=== PATIENT | male | born 1990 | race Hispanic/Latino ===

== ENCOUNTER 2021-03-27 01:22 | Emergency (ER) | payer SELFPAY ==
[2021-03-27 02:56] LABS: Absolute Lymphocytes (CBC) 2.6 K/uL (0.7-4.9); Basophils % 0.6 % (0-1.3); Hematocrit 42.7 % (39.6-49.0); Lymphocytes % 29.2 % (15.3-44.8); MPV 11.4 fL (7.6-11.3); RBC Red Blood Cell Count 4.97 M/uL (4.33-5.43)
[2021-03-27] MEDS ORDERED: ASPIRIN 81 MG CHEWABLE TABLET ONE (02:56)
[2021-03-27 03:09] LABS: Protime INR 0.92
[2021-03-27 03:45] LABS: ALT/SGPT 54 U/L (12-78); Albumin 3.9 g/dL (3.4-5.0); Alkaline Phosphatase 86 U/L (45-117); BUN Blood Urea Nitrogen 10 mg/dL (7-18); Bicarbonate 21 mmol/L (21-32); Bilirubin Direct < 0.1 mg/dL (0-0.2); Bilirubin Total 0.4 mg/dL (0.2-1.0); Glucose Level 125 mg/dL (74-106); NT PRO-BNP 11 pg/mL (<125); Protein, Total 7.8 g/dL (6.4-8.2); Sodium Level 141 mmol/L (136-145); Troponin (Emerg Dept Use Only) < 0.02 ng/mL (0.0-0.045)
[2021-03-27 03:50] LABS: AST/SGOT 31 U/L (15-37); Potassium 3.8 mmol/L (3.5-5.1)
--- NOTE | 2021-03-27 05:11 | ER ---
Nurse's Notes [facility] Name: Kana Arroyo Age: 31 yrs Sex: Male : 1990 Arrival Date: 03/27/2021 Time: 01:28 Bed 16 Private MD: Diagnosis: Essential (primary) hypertension Presentation: 03/27 01:45 Chief complaint: Patient states: Reports have not been taking his BP meds x 2-3 weeks; lp1 states tonight, about an hour ago, "didn't feel right", states feeling like he could not think straight; felt anxious, like he could not breathe. 01:45 Coronavirus screen: Client denies travel out of the [place] in the last 14 days. At this lp1 time, the client does not indicate any symptoms associated with coronavirus-19. Ebola Screen: No symptoms or risks identified at this time. Initial Sepsis Screen: Does the patient meet any 2 criteria? No. Patient's initial sepsis screen is negative. Does the patient have a suspected source of infection? No. Patient's initial sepsis screen is negative. Risk Assessment: Do you want to hurt yourself or someone else? Patient reports no desire to harm self or others. Onset of symptoms was March 27, 2021. 01:45 Method Of Arrival: Ambulatory lp1 01:45 Acuity: AUTUMN 3 lp1 Historical: - Allergies: 02:29 No Known Allergies; lp1 - Home Meds: 02:29 Unable to obtain [Active]; lp1 - PMHx: 02:29 Hypertension; Hyperlipidemia; lp1 - PSHx: 02:29 None; lp1 - Immunization history:: Adult Immunizations up to date. - Social history:: Patient/guardian denies using alcohol, street drugs, The patient lives with family, Smoking status: Patient reports the use of cigarette tobacco products, denies chronic smoking, but will smoke occasionally. - Family history:: not pertinent. Screenin:30 Abuse screen: Denies threats or abuse. Denies injuries from another. Nutritional lp1 screening: No deficits noted. Tuberculosis screening: No symptoms or risk factors identified. Fall Risk None identified. Assessment: 02:00 General: Appears in no apparent distress. Behavior is anxious. Pain: Denies pain. lp1 Neuro: Level of Consciousness is awake, alert, obeys commands, Oriented to person, place, time, situation, Moves all extremities. Full function Pupils are PERRLA, Reports "can't think straight". Cardiovascular: Patient's skin is warm and dry. Rhythm is sinus rhythm. Respiratory: Reports shortness of breath Airway is patent Respiratory effort is even, unlabored, Respiratory pattern is regular, symmetrical, Breath sounds are clear bilaterally. the patient has mild shortness of breath. GI: No signs and/or symptoms were reported involving the gastrointestinal system. : No signs and/or symptoms were reported regarding the genitourinary system. EENT: No signs and/or symptoms were reported regarding the EENT system. Derm: Skin is pink, warm \\T\\ dry. Musculoskeletal: No deficits noted. 03:15 Reassessment: Patient appears in no apparent distress at this time. Patient and/or lp1 family updated on plan of care and expected duration. Pain level reassessed. Patient is alert, oriented x 3, equal unlabored respirations, skin warm/dry/pink. 04:38 Reassessment: Patient appears in no apparent distress at this time. Patient is alert, lp1 oriented x 3, equal unlabored respirations, skin warm/dry/pink. Patient states feeling better. 05:27 Reassessment: Patient is alert, oriented x 3, equal unlabored respirations, skin lp1 warm/dry/pink. Patient denies pain at this time. Patient states feeling better. Patient states symptoms have improved. Vital Signs: 01:45 BP 150 / 120 RA; Pulse 76; Resp 18; Temp 98.1(O); Pulse Ox 100% on R/A; Weight 93.44 kg lp1 (R); Height 5 ft. 10 in. (177.80 cm); Pain 0/10; 01:45 BP 160 / 120 LA; lp1 02:15 BP 153 / 92; Pulse 74; Resp 18; Pulse Ox 100% on R/A; lp1 03:00 BP 138 / 92; Pulse 78; Resp 16; Pulse Ox 100% on R/A; lp1 04:00 BP 160 / 88; Pulse 68; Resp 16; Pulse Ox 99% on R/A; lp1 05:00 BP 148 / 98; Pulse 72; Resp 16; Pulse Ox 100% on R/A; Pain 0/10; lp1 01:45 Body Mass Index 29.56 (93.44 kg, 177.80 cm) lp1 ED Course: 01:28 Patient arrived in ED. es 01:51 Jomar Mathias MD is Attending Physician. ma2 02:20 Missed attempt(s): 20 gauge in left antecubital area. lp1 02:20 Initial lab(s) drawn, by me, sent to lab. lp1 02:27 Rosa Arroyo, RN is Primary Nurse. lp1 02:29 Triage completed. lp1 02:29 Arm band placed on. lp1 02:30 Patient has correct armband on for positive identification. Bed in low position. Call lp1 light in reach. vehicle body builder on. Pulse ox on. NIBP on. 02:54 XRAY Chest (1 view) In Process Unspecified. EDMS 04:38 Repeat lab(s) drawn. by me, sent to lab. lp1 05:27 No provider procedures requiring assistance completed. Patient did not have IV access lp1 during this emergency room visit. Administered Medications: 02:55 Drug: Aspirin Chewable Tablet 243 mg Route: PO; lp1 04:00 Follow up: Response: No adverse reaction lp1 Outcome: 05:10 Discharge ordered by . ma2 05:27 Discharged to home ambulatory. lp1 05:27 Condition: good 05:27 Discharge instructions given to patient, Instructed on discharge instructions, follow up and referral plans. Demonstrated understanding of instructions, follow-up care. 05:28 Patient left the ED. lp1 Signatures: Dispatcher [employer] Mattie Condon Laura, RN RN lp1 Jomar Mathias MD MD ma2 Corrections: (The following items were deleted from the chart) 05:27 02:00 Cardiovascular: Patient's skin is warm and dry. lp1 lp1
--- NOTE | 2021-03-27 05:11 | EDPHYS ---
Physician Documentation [facility] Name: Kana Arroyo Age: 31 yrs Sex: Male : 1990 Arrival Date: 03/27/2021 Time: 01:28 Bed 16 Private MD: ED Physician Jomar Mathias HPI: 03/27 02:28 This 31 yrs old Male presents to ER via Unassigned with complaints of Tingling ma2 of fingers, feel like something is sitting on chest, Breathing Difficulty. 02:28 The patient has shortness of breath at rest. Associated signs and symptoms: Pertinent ma2 negatives: non-productive cough, dizziness, hemoptysis, loss of consciousness. Severity of symptoms: At their worst the symptoms were moderate in the emergency department the symptoms are unchanged. The patient has not experienced similar symptoms in the past. Historical: - Allergies: 02:29 No Known Allergies; lp1 - Home Meds: 02:29 Unable to obtain [Active]; lp1 - PMHx: 02:29 Hypertension; Hyperlipidemia; lp1 - PSHx: 02:29 None; lp1 - Immunization history:: Adult Immunizations up to date. - Social history:: Patient/guardian denies using alcohol, street drugs, The patient lives with family, Smoking status: Patient reports the use of cigarette tobacco products, denies chronic smoking, but will smoke occasionally. - Family history:: not pertinent. ROS: 02:28 Constitutional: Negative for fever, chills, and weight loss. ma2 02:28 All other systems are negative. Exam: 02:28 Constitutional: This is a well developed, well nourished patient who is awake, alert, ma2 and in no acute distress. Chest/axilla: Normal chest wall appearance and motion. Nontender with no deformity. No lesions are appreciated. Cardiovascular: Regular rate and rhythm with a normal S1 and S2. No gallops, murmurs, or rubs. Normal PMI, no JVD. No pulse deficits. Respiratory: Lungs have equal breath sounds bilaterally, clear to auscultation and percussion. No rales, rhonchi or wheezes noted. No increased work of breathing, no retractions or nasal flaring. Abdomen/GI: Soft, non-tender, with normal bowel sounds. No distension or tympany. No guarding or rebound. No evidence of tenderness throughout. Vital Signs: 01:45 BP 150 / 120 RA; Pulse 76; Resp 18; Temp 98.1(O); Pulse Ox 100% on R/A; Weight 93.44 kg lp1 (R); Height 5 ft. 10 in. (177.80 cm); Pain 0/10; 01:45 BP 160 / 120 LA; lp1 02:15 BP 153 / 92; Pulse 74; Resp 18; Pulse Ox 100% on R/A; lp1 03:00 BP 138 / 92; Pulse 78; Resp 16; Pulse Ox 100% on R/A; lp1 04:00 BP 160 / 88; Pulse 68; Resp 16; Pulse Ox 99% on R/A; lp1 05:00 BP 148 / 98; Pulse 72; Resp 16; Pulse Ox 100% on R/A; Pain 0/10; lp1 01:45 Body Mass Index 29.56 (93.44 kg, 177.80 cm) lp1 MDM: 01:51 Patient medically screened. [facility] 02:28 Differential diagnosis: Anxiety Reaction Bronchitis Unstable Angina. [facility] 05:09 Data reviewed: vital signs, nurses notes. Counseling: I had a detailed discussion with ma the patient and/or guardian regarding: the historical points, exam findings, and any diagnostic results supporting the discharge/admit diagnosis, the presence of at least one elevated blood pressure reading (>120/80) during this emergency department visit, the need for outpatient follow up. 03/27 02:27 Order name: Basic Metabolic Panel [facility] 03/27 02:27 Order name: CBC with Diff [facility] 03/27 02:27 Order name: LFT's; Complete Time: 04:10 [facility] 03/27 02:27 Order name: Magnesium; Complete Time: 04:10 [facility] 03/27 02:27 Order name: NT PRO-BNP; Complete Time: 04:10 [facility] 03/27 02:27 Order name: PT-INR; Complete Time: 04:10 [facility] 03/27 02:27 Order name: Troponin (emerg Dept Use Only); Complete Time: 04:10 [facility] 03/27 02:27 Order name: XRAY Chest (1 view) [facility] 03/27 02:27 Order name: EKG; Complete Time: 02:28 [facility] 03/27 02:27 Order name: Cardiac monitoring; Complete Time: 02:31 ma2 03/27 02:27 Order name: Basic Metabolic Panel; Complete Time: 04:10 [facility] 03/27 02:27 Order name: CBC with Automated Diff; Complete Time: 04:10 EDMS 03/27 04:10 Order name: Troponin I: repeat; Complete Time: 05:09 mn2 03/27 02:27 Order name: EKG - Nurse/Tech; Complete Time: 02:30 mn2 03/27 02:27 Order name: Labs collected and sent; Complete Time: 02:30 mn2 03/27 02:27 Order name: O2 Per Protocol; Complete Time: 02:30 ma2 03/27 02:27 Order name: O2 Sat Monitoring; Complete Time: 02:30 ma2 Administered Medications: 02:55 Drug: Aspirin Chewable Tablet 243 mg Route: PO; lp1 04:00 Follow up: Response: No adverse reaction lp1 Disposition: 03/27/21 05:10 Discharged to Home. Impression: Essential (primary) hypertension. - Condition is Stable. - Discharge Instructions: Hypertension. - Medication Reconciliation Form, Thank You Letter, Antibiotic Education, Prescription Opioid Use form. - Follow up: Private Physician; When: Tomorrow; Reason: Continuance of care. Signatures: Dispatcher [employer] Rosa Armstrong RN RN lp1 Jomar Mathias MD MD ma2 Corrections: (The following items were deleted from the chart) 05:28 05:10 03/27/2021 05:10 Discharged to Home. Impression: Essential (primary) lp1 hypertension. Condition is Stable. Forms are Medication Reconciliation Form, Thank You Letter, Antibiotic Education, Prescription Opioid Use. Follow up: Private Physician; When: Tomorrow; Reason: Continuance of care. ma2
[2021-03-27 05:36] VITALS: TEMP 98.1
[2021-03-27 05:42] VITALS: BP 148/98; O2SAT 100
--- NOTE | 2021-03-27 08:44 | RAD REPORT ---
EXAM DESCRIPTION: RAD - Chest Single View - 03/27/2021 2:54 am CLINICAL HISTORY: CHEST PAIN Chest pain. COMPARISON: Chest Pa And Lat (2 Views) dated 11/06/2016; CHEST SINGLE VIEW dated 03/31/2015 FINDINGS: Portable technique limits examination quality. The lungs are grossly clear. The heart is normal in size. No displaced fractures. IMPRESSION: No acute intrathoracic process suspected.
== END 2021-03-27 05:28 | disposition home or self-care (01) ==
LOC: ER 01:22
DX: I10 Essential (primary) hypertension (principal); F17.210 Nicotine dependence, cigarettes, uncomplicated
CPT/HCPCS: 36415; 71045; 80048; 80076; 83735; 83880; 84484; 85025; 85610; 93005; 99284

== ENCOUNTER 2021-08-15 03:32 | Emergency (ER) | payer SELFPAY ==
--- NOTE | 2021-08-15 04:05 | ER ---
Nurse's Notes [facility] Name: Kana Arroyo Age: 31 yrs Sex: Male : 1990 Arrival Date: 08/15/2021 Time: 03:36 Bed 13 Private MD: Diagnosis: Generalized anxiety disorder Presentation: 08/15 03:57 Chief complaint: Patient states: thinks BP is high, c/o left arm numbness, also reports em shortness of breath, has hx of anxiety. Coronavirus screen: Vaccine status: Patient reports being unvaccinated. Ebola Screen: Patient negative for fever greater than or equal to 101.5 degrees Fahrenheit, and additional compatible Ebola Virus Disease symptoms Patient denies exposure to infectious person. Patient denies travel to an Ebola-affected area in the 21 days before illness onset. No symptoms or risks identified at this time. Initial Sepsis Screen: Does the patient meet any 2 criteria? No. Patient's initial sepsis screen is negative. Does the patient have a suspected source of infection? No. Patient's initial sepsis screen is negative. Risk Assessment: Do you want to hurt yourself or someone else? Patient reports no desire to harm self or others. Onset of symptoms was August 15, 2021. 03:57 Method Of Arrival: Ambulatory em 03:57 Acuity: AUTUMN 3 em Historical: - Allergies: 03:59 No Known Allergies; em - Home Meds: 03:59 rosuvastatin 10 mg oral tab 1 tab once daily [Active]; irbesartan 150 mg oral tab em [Active]; - PMHx: 04:07 Hyperlipidemia; Hypertension; Anxiety; dc2 - PSHx: 03:59 None; em - Immunization history:: Adult Immunizations not immunized. - Social history:: Smoking status: Patient denies any tobacco usage or history of. Patient/guardian denies using alcohol, street drugs, The patient lives with family. - Family history:: not pertinent. Screenin:06 Abuse screen: Denies threats or abuse. Denies injuries from another. Nutritional dc2 screening: No deficits noted. Tuberculosis screening: No symptoms or risk factors identified. Never had TB. Possible symptoms: None. Fall Risk None identified. No fall in past 12 months (0 pts). No secondary diagnosis (0 pts). No IV (0 pts). Ambulatory Aid- None/Bed Rest/Nurse Assist (0 pts). Gait- Normal/Bed Rest/Wheelchair (0 pts) Mental Status- Oriented to own ability (0 pts). Total Bonilla Fall Scale indicates No Risk (0-24 pts). Assessment: 04:05 General: Appears in no apparent distress. comfortable, slender, well groomed, well dc2 developed, Behavior is cooperative, anxious, restless. Pain: Denies pain. Neuro: No deficits noted. Level of Consciousness is awake, alert, obeys commands, Oriented to person, place, time, situation. Cardiovascular: No deficits noted. Heart tones present. Respiratory: No deficits noted. Airway is patent Breath sounds are clear bilaterally. Denies shortness of breath. GI: No deficits noted. No signs and/or symptoms were reported involving the gastrointestinal system. Abdomen is non-distended. : No signs and/or symptoms were reported regarding the genitourinary system. Derm: No deficits noted. No signs and/or symptoms reported regarding the dermatologic system. Musculoskeletal: No deficits noted. No signs and/or symptoms reported regarding the musculoskeletal system. Vital Signs: 03:57 BP 139 / 97; Pulse 69; Resp 18; Temp 97.8; Pulse Ox 100% on R/A; Weight 90.72 kg; em Height 5 ft. 9 in. (175.26 cm); 03:57 Body Mass Index 29.53 (90.72 kg, 175.26 cm) em ED Course: 03:36 Patient arrived in ED. ja2 03:45 Jomar Mathias MD is Attending Physician. ma2 03:59 Triage completed. em 03:59 Arm band placed on. em 04:04 Millicent Delarosa, RN is Primary Nurse. dc2 04:05 Placed in gown. Bed in low position. Call light in reach. Side rails up X 1. Pulse ox dc2 on. NIBP on. 04:07 No provider procedures requiring assistance completed. dc2 04:09 Patient did not have IV access during this emergency room visit. dc2 Administered Medications: No medications were administered Outcome: 04:04 Discharge ordered by . ma2 04:14 Discharged to home ambulatory. dc2 04:14 Condition: stable 04:14 Discharge instructions given to patient, Instructed on discharge instructions, Prescriptions given X 1. 04:15 Patient left the ED. dc2 Signatures: Ron Evans, RN RN em Jomar Mathias MD MD ma2 Julianne Leon Millicent Delarosa RN RN dc2 Corrections: (The following items were deleted from the chart) 04: 03:59 PMHx: Hyperlipidemia; em dc2 04: 03:59 PMHx: Hypertension; em dc2
--- NOTE | 2021-08-15 04:05 | EDPHYS ---
Physician Documentation [facility] Name: Kana Arroyo Age: 31 yrs Sex: Male : 1990 Arrival Date: 08/15/2021 Time: 03:36 Bed 13 Private MD: ED Physician Jomar Mathias HPI: 08/15 04:03 This 31 yrs old Male presents to ER via Ambulatory with complaints of Numbness ma2 Of Arm, High Blood Pressure. 04:03 This 31 yrs old Male presents to ER via Ambulatory with complaints of anxiety. ma2 04:03 Onset: The symptoms/episode began/occurred gradually, 2 month(s) ago. Associated signs ma2 and symptoms: Pertinent negatives: erythema, nausea, pain, swelling, vomiting, warmth. Severity of symptoms: At their worst the symptoms were mild, in the emergency department the symptoms have improved. The patient has experienced similar episodes in the past. Historical: - Allergies: 03:59 No Known Allergies; em - Home Meds: 03:59 rosuvastatin 10 mg oral tab 1 tab once daily [Active]; irbesartan 150 mg oral tab em [Active]; - PMHx: 04:07 Hyperlipidemia; Hypertension; Anxiety; dc2 - PSHx: 03:59 None; em - Immunization history:: Adult Immunizations not immunized. - Social history:: Smoking status: Patient denies any tobacco usage or history of. Patient/guardian denies using alcohol, street drugs, The patient lives with family. - Family history:: not pertinent. ROS: 04:03 Constitutional: Negative for fever, chills, and weight loss. ma2 04:03 All other systems are negative. Exam: 04:03 Constitutional: This is a well developed, well nourished patient who is awake, alert, ma2 and in no acute distress. Head/Face: Normocephalic, atraumatic. Eyes: Pupils equal round and reactive to light, extra-ocular motions intact. Lids and lashes normal. Conjunctiva and sclera are non-icteric and not injected. Cornea within normal limits. Periorbital areas with no swelling, redness, or edema. ENT: Nares patent. No nasal discharge, no septal abnormalities noted. Tympanic membranes are normal and external auditory canals are clear. Oropharynx with no redness, swelling, or masses, exudates, or evidence of obstruction, uvula midline. Mucous membranes moist. Neck: Trachea midline, no thyromegaly or masses palpated, and no cervical lymphadenopathy. Supple, full range of motion without nuchal rigidity, or vertebral point tenderness. No Meningismus. Chest/axilla: Normal chest wall appearance and motion. Nontender with no deformity. No lesions are appreciated. Cardiovascular: Regular rate and rhythm with a normal S1 and S2. No gallops, murmurs, or rubs. Normal PMI, no JVD. No pulse deficits. Respiratory: Lungs have equal breath sounds bilaterally, clear to auscultation and percussion. No rales, rhonchi or wheezes noted. No increased work of breathing, no retractions or nasal flaring. Abdomen/GI: Soft, non-tender, with normal bowel sounds. No distension or tympany. No guarding or rebound. No evidence of tenderness throughout. Skin: Warm, dry with normal turgor. Normal color with no rashes, no lesions, and no evidence of cellulitis. MS/ Extremity: Pulses equal, no cyanosis. Neurovascular intact. Full, normal range of motion. Neuro: Awake and alert, GCS 15, oriented to person, place, time, and situation. Cranial nerves II-XII grossly intact. Motor strength 5/5 in all extremities. Sensory grossly intact. Cerebellar exam normal. Normal gait. 04:03 Psych: Awake, alert, with orientation to person, place and time. Behavior, mood, and ma2 affect are within normal limits. Vital Signs: 03:57 BP 139 / 97; Pulse 69; Resp 18; Temp 97.8; Pulse Ox 100% on R/A; Weight 90.72 kg; em Height 5 ft. 9 in. (175.26 cm); 03:57 Body Mass Index 29.53 (90.72 kg, 175.26 cm) em MDM: 03:46 Patient medically screened. ma2 04:03 Differential diagnosis: anxiety, essential htn, vs other conditions. ma2 04:04 Data reviewed: vital signs, nurses notes. Counseling: I had a detailed discussion with ma2 the patient and/or guardian regarding: the historical points, exam findings, and any diagnostic results supporting the discharge/admit diagnosis, the presence of at least one elevated blood pressure reading (>120/80) during this emergency department visit, the need for outpatient follow up. Response to treatment: the patient's symptoms have markedly improved after treatment. Administered Medications: No medications were administered Disposition Summary: 08/15/21 04:04 Discharge Ordered Location: Home ma2 Condition: Stable ma2 Diagnosis - Generalized anxiety disorder ma2 Followup: ma2 - With: Private Physician - When: Tomorrow - Reason: Continuance of care Discharge Instructions: - Discharge Summary Sheet ma2 - Generalized Anxiety Disorder, Adult ma2 Forms: - Medication Reconciliation Form ma2 - Thank You Letter ma2 - Antibiotic Education ma2 - Prescription Opioid Use ma2 Prescriptions: - buspirone 5 mg Oral tablet - take 1 tablet by ORAL route 3 times per day; 60 tablet; Refills: 0, Product ma2 Selection Permitted Signatures: Ron Evans RN RN Jomar Noyola MD MD al2 Isaura, VARINDER Ricks RN dc2 Corrections: (The following items were deleted from the chart) 04:07 03:59 PMHx: Hyperlipidemia; em dc2 04:07 03:59 PMHx: Hypertension; em dc2
[2021-08-15 04:23] VITALS: BP 139/97; TEMP 97.8; O2SAT 100
--- OUTSIDE RECORDS SUMMARY | 2021-08-26 07:36 | XMS REPORT | Continuity of Care Document ---
:1990 Author Organization [facility] t Address [address] [place] [address] [address] [place] [address] Care Team Providers Name Role Phone PCP, DOES NOT HAVE A Primary Care Physician Unavailable Felix REID Attending Clinician Unavailable Felix Reid DO Attending Clinician Payers Payer Name Policy Type Policy Number Effective Date Expiration Date S garima TERRYR FROM [id number] 2021 [facility] 00:00:00 Problems Condition Condition Condition Status Onset Resolution Last Treating Co mments Source Name Details Category Date Date Treatment Clinician Date No known No known Disease Unive rs active active ity of problems problems [facility] Allergies, Adverse Reactions, Alerts Allergy Allergy Status Severity Reaction(s) Onset Inactive Treating Comm ents Source Name Type Date Date Clinician NO KNOWN Drug Active Univers ALLERGIE Class ity of S [facility] Social History Social Habit Start Date Stop Date Quantity Comments Source Exposure to Not sure [facility] SARS-CoV-2 (event) Medica l Branch Sex Assigned At [birth year] [facility] 00:00:00 00:00:00 [facility] Smoking Status Start Date Stop Date Source Unknown if ever smoked [facility] Medications Ordered Filled Start Stop Current Ordering Indication Dosage Frequency Signature Comments Components Source Medication Medication Date Date Medication? Clinician (SIG) Name Name ketorolac 2020-10- No 30mg 30 mg, Unive rs (TORADOL) 10-21 Slow IV ity of injection 23:30: 22:39 [place], [place] 30 mg 00 :00 ONCE, 1 Medical dose, On Branch 08/21/21 at 1730, VIKKI
Fa culty member approving Restricted medication : KRISTINA REID NaCl 0.9% 2020-10 1000mL at 999 Uni vers (NS) bolus 10-21 mL/hr, ity of infusion 23:30: 23:38 1,000 mL, Socrates as 1,000 mL 00 :00 IV Medical Infusion, Branch ONCE, 1 dose, On 08/21/21 at 1730, VIKKI No known 2020-10 No Univers medications 10-21 ity of 15:59: [place] 17 [facility] Vital Signs Vital Name Observation Time Observation Value Comments Source Systolic blood 2021-08-21 23:36:00 131 mm[Hg] [facility] Diastolic blood 2021-08-21 23:36:00 92 mm[facility]Hg[facility] rate 2021-08-21 23:36:00 72 /min [facility] Respiratory rate 2021-08-21 23:36:00 11 /min [facility] Oxygen saturation in 2021-08-21 23:36:00 100 /min [facility] Arterial blood by [facility] Pulse oximetry [place] Body temperature 2021-08-21 21:24:00 36.33 Tenisha [facility] Body height 2021-08-21 21:24:00 175.3 cm [facility] Body weight 2021-08-21 21:24:00 95.255 kg [facility] BMI 2021-08-21 21:24:00 31.01 kg/m2 [facility] Procedures Procedure Date / Time Performing Clinician Source Performed XR CHEST 1 VW 2021-08-21 22:06:33 Kristina Reid [facility] LIPASE 2021-08-21 21:59:00 Kristina Reid [facility] TROPONIN I 2021-08-21 21:59:00 Kristina Reid [facility] COMP. METABOLIC PANEL 2021-08-21 21:59:00 Kristina Reid [facility] ([id number]) [facility] CBC WITH DIFF 2021-08-21 21:59:00 Kristina Reid [facility] PROTHROMBIN TIME / INR 2021-08-21 21:59:00 [facility] 2021-08-21 21:59:00 Kristina Reid [facility] Branch COVID-19 (ID NOW RAPID 2021-08-21 21:59:00 Kristina Reid [facility] TESTING) Medical Branch CONSENT/REFUSAL FOR 2021-08-21 21:13:11 [facility] Medical Branch Encounters Start End Encounter Admission Attending Care Care Encounter Source Date/Time Date/Time Type Type Clinicians Facility Department ID 2021-08-21 2021-08-21 Emergency X [facility] ERT [id number] Univers 15:27:00 17:48:00 KRISTINA [facility] 2021-08-21 2021-08-21 [facility] [id number] Univers 15:27:00 17:48:00 Kristina [place] [facility] [id number] [facility] [id number] [facility] [id number] [place] [id number] Branch Results Test Description Test Time Test Comments Results Result Comments Source TROPONIN I 2021-08-21 22:36:33 Test Item Value Reference Range Interpretation Comme nts TROPONIN I (test code = <0.012 See_Comment [Au tomated message] The [id number]) system which ge nerated this result tra nsmitted reference range : <=0.034 ng/mL. The refe rence range was not u sed to interpret this result as normal/abnormal . GRAYSON (test code = GRAYSON) Reference (Normal) Range (defined by the 99th percentile reference limit): <= 0.034 ng/mL Note: Cardiac troponin begins to rise 3-4 hours after the onset of ischemia. Repeat in 4-6 hours if the sample was drawn within 3-4 hours of the onset of the symptom and found normal. Diagnosis of myocardial injury is made with acute changes in cTn concentrations with at least one serial sample above the 99th percentile upper reference limit (URL), taken together with the patient's clinical presentation. Biotin has been reported to cause a negative bias, interpret results relative to patient's use of biotin. Lab Interpretation Normal (test code = 90222-6) [facility]. METABOLIC PANEL (42992)2021-08-21 22:24:50 Test Item Value Reference Range Interpretation Comments NA (test code = 137 mmol/L 135-145 4635379831) K (test code = 3.8 mmol/L 3.5-5.0 0629093040) CL (test code = 102 mmol/L 98-108 1431678650) CO2 TOTAL (test code = 24 mmol/L 23-31 7409952901) AGAP (test code = 2-16 8901710539) BUN (test code = 16 mg/dL 7-23 4184447188) GLUCOSE (test code = 177 mg/dL 70-110 H 4250712628) CREATININE (test code = 0.81 mg/dL 0.60-1.25 1559335217) TOTAL BILI (test code = 1.1 mg/dL 0.1-1.4 4973672893) CALCIUM (test code = 10.1 mg/dL 8.6-10.6 2107509417) T PROTEIN (test code = 8.0 g/dL 6.3-8.2 8409781980) ALBUMIN (test code = 4.8 g/dL 3.5-5.0 1328615678) ALK PHOS (test code = 100 U/L 34-122 2525414840) ALTv (test code = 38 U/L 5-50 1742-6) AST(SGOT) (test code = 28 U/L 13-40 4917530852) eGFR (test code = mL/min/1.73m2 2628596813) GRAYSON (test code = GRAYSON) Association of Glomerular Filtration Rate (GFR) and Staging of Kidney Disease* + --+ --+ ------+| GFR (mL/min/1.73 m2) ?| With Kidney Damage ?| ?Without Kidney Damage+ --------+ --------+ +| ?>90 ?| ?Stage one ?| ? Normal ?+ ---+ ---+ -------+| ?60-89 ?| ?Stage two ?| ? Decreased GFR ? + --+ --+ ------+| ?30-59 ?| ?Stage three ?| ? Stage three ? + --+ --+ ------+| ?15-29 ?| ?Stage four ? | ? Stage four ?+ ---+ ---+ -------+| ?<15 (or dialysis) ? ?| ?Stage five ? | ? Stage five ?+ ---+ ---+ -------+ *Each stage assumes the associated GFR level has been in effect for at least three months. ?Stages 1 to 5, with or without kidney disease, indicate chronic kidney disease. Notes: Determination of stages one and two (with eGFR >59mL/min/1.73 m2) requires estimation of kidney damage for at least three months as defined by structural or functional abnormalities of the kidney, manifested by either:Pathological abnormalities or Markers of kidney damage (including abnormalities in the composition of the blood or urine or abnormalities in imaging tests). Lab Interpretation Abnormal (test code = 14454-0) [facility] [id number] 22:24:30 Test Item Value Reference Range Interpretation Comments LIPASE (test code = 4453254401) 87 U/L 0-220 Lab Interpretation (test code = Normal 31885-0) [facility]21-[facility]08 22:17:09 Test Item Value Reference Range Interpretation Comments APTT Patient (test See_Comment [Automat ed code = 3173-2) message] The system which generated this result transmitted reference range : 23 - 38 Seconds . The reference range was not used to interpr et this result as normal/abnormal . GRAYSON (test code = GRAYSON) [facility] patient population mean normal value for aPTT is 30 seconds. Lab Interpretation Normal (test code = 03269-2) [facility] / [id number] 22:15:14 Test Item Value Reference Range Interpretation Comments PROTIME PATIENT (test See_Comment [Auto mated message] code = 5964-2) The system wh ich generated this result transmitted ref erence range: 12.0 - 1 4.7 Seconds. The re ference range was not u sed to interpret this result as normal/abnor mal. INR (test code = 6301-6) Nor mal INR <1.1; Warfarin Therap eutic range 2.0 to 3. 0 or 2.5 to 3.5, dep ending upon the indica tions. Lab Interpretation (test Normal code = 52204-9) [facility] WITH [id number] 22:07:28 Test Item Value Reference Range Interpretation Comments WBC (test code = See_Comment [Automated 6690-2) message] The sy stem which generated this result transmitted reference range : 4.20 - 10.70 10*3/?L. The reference range was not used to interpret this result as normal/abnormal . RBC (test code = See_Comment [Automated 789-8) message] The sy stem which generated this result transmitted reference range : 4.26 - 5.52 10*6/?L. The reference range was not used to interpret this result as normal/abnormal . HGB (test code = 15.1 g/dL 12.2-16.4 718-7) HCT (test code = 42.9 % 38.4-49.3 4544-3) MCV (test code = 83.5 fL 81.7-95.6 787-2) MCH (test code = 29.4 pg 26.1-32.7 785-6) MCHC (test code = 35.2 g/dL 31.2-35.0 H 786-4) RDW-SD (test code = 35.3 fL 38.5-51.6 L 75225-7) RDW-CV (test code = 11.7 % 12.1-15.4 L 788-0) PLT (test code = See_Comment [Automated 777-3) message] The sy stem which generated this result transmitted reference range : 150 - 328 10*3/ ?L. The reference r rickie was not used to interpret this result as normal/abnormal . MPV (test code = 12.4 fL 9.8-13.0 50179-7) NRBC/100 WBC (test See_Comment [Automat ed code = 7375646949) message] The system which generated this result transmitted reference range : 0.0 - 10.0 /100 WBCs. The refer ence range was not u sed to interpret th is result as normal/abnormal . NRBC x10^3 (test code <0.01 See_Comment [Auto mated = 6884200996) message] The s ystem which generated this result transmitted reference range : 10*3/?L. The reference range was not used to interpret this result as normal/abnormal . GRAN MAT (NEUT) % 69.4 % (test code = 770-8) IMM GRAN % (test code 0.20 % = 7047531106) LYMPH % (test code = 25.5 % 736-9) MONO % (test code = 3.5 % 5905-5) EOS % (test code = 1.1 % 713-8) BASO % (test code = 0.3 % 706-2) GRAN MAT x10^3(ANC) 6.12 10*3/uL 1.99-6.95 (test code = 6440178081) IMM GRAN x10^3 (test <0.03 0.00-0.06 code = 3520862554) LYMPH x10^3 (test code 2.25 10*3/uL 1.09-3.23 = 731-0) MONO x10^3 (test code 0.31 10*3/uL 0.36-1.02 L = 742-7) EOS x10^3 (test code = 0.10 10*3/uL 0.06-0.53 711-2) BASO x10^3 (test code 0.03 10*3/uL 0.01-0.09 = 704-7) Lab Interpretation Abnormal (test code = 43395-4) [facility]"
== END 2021-08-15 04:15 | disposition home or self-care (01) ==
LOC: ER 03:32
DX: F41.1 Generalized anxiety disorder (principal); I10 Essential (primary) hypertension; E78.5 Hyperlipidemia, unspecified
CPT/HCPCS: 99283

== ENCOUNTER 2022-02-25 19:15 | Emergency (ER) | payer OTHER ==
[2022-02-25] MEDS ORDERED: LORazepam 2 MG/ML VIAL ONE (19:51)
[2022-02-25] MEDS ORDERED: ONDANSETRON 4 MG/2 ML VIAL ONE (19:51)
[2022-02-25] MEDS ORDERED: NA CHLORIDE 0.9% 1,000 ML ONE (19:52)
--- NOTE | 2022-02-25 20:04 | RAD REPORT ---
EXAM DESCRIPTION: CT - Head Brain Wo Cont - 02/25/2022 7:51 pm CLINICAL HISTORY: Dizziness COMPARISON: 2013 TECHNIQUE: Computed axial tomography of the head was obtained. IV contrast was not requested. All CT scans are performed using dose optimization technique as appropriate and may include automated exposure control or mA/KV adjustment according to patient size. FINDINGS: An intracranial bleed is not seen . The ventricles are normal in caliber. No significant hypodense areas within the brain visualized No extra-axial fluid collection is noted. Fluid within the sinuses/ mastoids is not seen. IMPRESSION: No acute intracranial abnormality is seen. If patient's symptoms persist MRI of the bra in would be recommended.
--- NOTE | 2022-02-25 20:09 | RAD REPORT ---
EXAM DESCRIPTION: CT - Abdomen Pelvis Wo Contrast - 02/25/2022 7:56 pm CLINICAL HISTORY: Abdominal pain /flank pain COMPARISON: 2013 TECHNIQUE: Computed axial tomography of the abdomen and pelvis was obtained. IV and oral contrast we re not requested. All CT scans are performed using dose optimization technique as appropriate and may include automated exposure control or mA/KV adjustment according to patient size. FINDINGS: The evaluation of solid organs, vessels and bowel is limited secondary to the lack of con trast administration. The liver, spleen, pancreas, adrenals and kidneys appear grossly normal. The appendix is normal. There is no evidence of diverticulitis. Umbilical hernia contains fat. The neck measures 11 millimeters. The herniated sac 33 millimeters. Mi ld stranding is present within the fat IMPRESSION: Moderate umbilical hernia. Mild stranding within the fat may indicate inflammation
[2022-02-25 20:39] LABS: Absolute Lymphocytes (CBC) 3.3 K/uL (0.7-4.9); Hematocrit 48.5 % (39.6-49.0); Lymphocytes % 22.5 % (15.3-44.8); MPV 10.6 fL (7.6-11.3); RBC Red Blood Cell Count 5.92 M/uL (4.33-5.43)
[2022-02-25 20:48] LABS: Protime INR 1.04
[2022-02-25 21:01] LABS: Albumin 4.8 g/dL (3.4-5.0); Bilirubin Direct 0.2 mg/dL (0-0.2); Bilirubin Total 1.1 mg/dL (0.2-1.0); Magnesium 2.1 mg/dL (1.8-2.4); Potassium 3.7 mmol/L (3.5-5.1); Protein, Total 8.7 g/dL (6.4-8.2); Troponin High Sensitivity 4.4 pg/mL (<58.9)
--- NOTE | 2022-02-25 21:10 | RAD REPORT ---
EXAM DESCRIPTION: Luiz Single View02/25/2022 8:48 pm CLINICAL HISTORY: Abdominal pain COMPARISON: 2020 FINDINGS: The lungs appear clear of acute infiltrate. The heart is normal size IMPRESSION: No acute abnormalities displayed
[2022-02-25 22:16] LABS: Urine Blood Trace-intact (Negative); Urine Glucose Negative (Negative); Urine Protein Negative (Negative); Urine pH 6.5 (5.0-7.0)
[2022-02-25 22:39] LABS: Barbiturates NEGATIVE (NEGATIVE); Benzodiazepines NEGATIVE (NEGATIVE); Cocaine NEGATIVE (NEGATIVE); METHAMPHETAM NEGATIVE (NEGATIVE); Methadone NEGATIVE (NEGATIVE); Opiates NEGATIVE (NEGATIVE); Phencyclidine NEGATIVE (NEGATIVE); THC Cannibis POSITIVE (NEGATIVE)
--- NOTE | 2022-02-26 00:15 | EDPHYS ---
Physician Documentation [facility] Name: Kana Arroyo Age: 32 yrs Sex: Male : 1990 Arrival Date: 02/25/2022 Time: 19:18 Bed 6 Private MD: ED Physician Sanjeev Tesfaye HPI: 02/25 19:41 This 32 yrs old Male presents to ER via EMS with complaints of Dizziness. mh7 19:41 The patient presents with dizziness, lightheadedness, feeling off balance. Onset: The mh7 symptoms/episode began/occurred 1 week(s) ago. Context: occurred at home, occurred while the patient was standing, just prior to the episode the patient experienced no apparent symptoms. Modifying factors: The symptoms are alleviated by nothing, the symptoms are aggravated by standing up. Associated signs and symptoms: Pertinent positives: nausea, left lower back pain, congestion, Pertinent negatives: abdominal pain, agitation, blurred vision, chest pain, combativeness, confusion, diaphoresis, focal weakness, head injury, headache, near-syncope, numbness, palpitations, seizure, shortness of breath, syncope, tingling, vomiting. Severity of symptoms: At their worst the symptoms were moderate 4 day(s) ago, in the emergency department the symptoms are unchanged. The patient has been recently seen by a physician: outside ER 4 days ago. Historical: - Allergies: 19:19 No Known Allergies; jb4 - Home Meds: 19:19 BP PILL, UNKNOWN NAME [Active]; irbesartan 150 mg Oral tab [Active]; rosuvastatin 10 mg jb4 Oral tab 1 tab once daily [Active]; setraline [Active]; - PMHx: 19:19 Anxiety; Hyperlipidemia; Hypertension; jb4 - Immunization history:: Adult Immunizations unknown. - Social history:: Smoking status: unknown. ROS: 19:41 Constitutional: Negative for fever, chills, and weight loss, Eyes: Negative for injury, mh7 pain, redness, and discharge, Neck: Negative for injury, pain, and swelling, Cardiovascular: Negative for chest pain, palpitations, and edema, Respiratory: Negative for shortness of breath, cough, wheezing, and pleuritic chest pain, : Negative for injury, bleeding, discharge, and swelling, MS/Extremity: Negative for injury and deformity, Skin: Negative for injury, rash, and discoloration, Neuro: Negative for headache, weakness, numbness, tingling, and seizure. 19:41 Allergy/Immunology: Negative for hives, rash, and allergies, Endocrine: Negative for neck swelling, polydipsia, polyuria, polyphagia, and marked weight changes, Hematologic/Lymphatic: Negative for swollen nodes, abnormal bleeding, and unusual bruising. 19:41 Abdomen/GI: Negative for abdominal pain, vomiting, diarrhea, constipation, abdominal cramps, abdominal distension, anorexia, dysphagia, hematemesis, black/tarry stool, rectal pain, rectal bleeding, bowel incontinence, flatulence. 19:41 Psych: Positive for anxiety, Negative for depression, drug dependence, alcohol dependence, auditory hallucinations, visual hallucinations, homicidal ideation, insomnia, suicide gesture, suicidal ideation. Exam: 19:41 Eyes: Pupils equal round and reactive to light, extra-ocular motions intact. Lids and mh7 lashes normal. Conjunctiva and sclera are non-icteric and not injected. Cornea within normal limits. Periorbital areas with no swelling, redness, or edema. Neck: Trachea midline, no thyromegaly or masses palpated, and no cervical lymphadenopathy. Supple, full range of motion without nuchal rigidity, or vertebral point tenderness. No Meningismus. Chest/axilla: Normal chest wall appearance and motion. Nontender with no deformity. No lesions are appreciated. Cardiovascular: Regular rate and rhythm with a normal S1 and S2. No gallops, murmurs, or rubs. Normal PMI, no JVD. No pulse deficits. Respiratory: Lungs have equal breath sounds bilaterally, clear to auscultation and percussion. No rales, rhonchi or wheezes noted. No increased work of breathing, no retractions or nasal flaring. Skin: Warm, dry with normal turgor. Normal color with no rashes, no lesions, and no evidence of cellulitis. MS/ Extremity: Pulses equal, no cyanosis. Neurovascular intact. Full, normal range of motion. 19:41 Constitutional: The patient appears in no acute distress, alert, awake, anxious. 19:41 Psych: Behavior/mood is cooperative, anxious, Oriented to person, place, time, Patient has no thoughts/intents to harm self or others. Judgement / Insight is normal. Memory is normal. Delusions/hallucinations are not present. 19:41 Head/Face: Normocephalic, atraumatic. Abdomen/GI: Soft, non-tender, with normal bowel 7 sounds. No distension or tympany. No guarding or rebound. No evidence of tenderness throughout. 19:41 Back: normal spinal alignment noted, CVA tenderness, that is moderate, is noted on the mh7 left, muscle spasm, is not present. Vital Signs: 19:19 BP 156 / 115; Pulse 86; Resp 17 S; Temp 98.0(O); Pulse Ox 100% on R/A; Weight 92.99 kg jl7 (R); Height 5 ft. 9 in. (175.26 cm) (R); Pain 6/10; 20:07 BP 153 / 102 Supine; ll3 20:12 BP 151 / 106 Sitting; ll3 20:17 BP 146 / 110 Standing; ll3 20:58 BP 154 / 113; Pulse 83; Resp 19; Pulse Ox 99% on R/A; lg3 22:20 BP 143 / 110; Pulse 76; Resp 21 S; Pulse Ox 99% on R/A; lg3 23:30 BP 128 / 90; Pulse 74; Resp 18; Pulse Ox 99% on R/A; ll3 0516 00:30 BP 142 / 106; Pulse 77; Resp 20; Pulse Ox 98% on R/A; ll3 05 19:19 Body Mass Index 30.27 (92.99 kg, 175.26 cm) [facility] MDM: 00:13 Differential diagnosis: cardiac arrhythmia, generalized weakness, idiopathic dizziness, mh7 near-syncope, syncope, vertigo. Data reviewed: vital signs, nurses notes, lab test result(s), cardiac enzymes, CBC, electrolytes, urinalysis, urine drug screen, EKG, radiologic studies, CT scan, plain films. Data interpreted: Pulse oximetry: on room air is 99 %. Interpretation: normal. Counseling: I had a detailed discussion with the patient and/or guardian regarding: the historical points, exam findings, and any diagnostic results supporting the discharge/admit diagnosis, the presence of at least one elevated blood pressure reading (>120/80) during this emergency department visit, lab results, radiology results, the need for outpatient follow up, to return to the emergency department if symptoms worsen or persist or if there are any questions or concerns that arise at home. Response to treatment: the patient's symptoms have resolved after treatment, the patient's blood pressure is in an acceptable range, mental status has returned to baseline, the patient no longer shows bradycardia, the patient is not short of breath, the patient is not tachycardic, the patient's pain is gone, the patient's temperature has normalized. 00:15 Patient medically screened. [facility] 02/25 19:35 Order name: Basic Metabolic Panel; Complete Time: 21:11 [facility] 02/25 19:35 Order name: CBC with Diff; Complete Time: 20:55 [facility] 02/25 19:35 Order name: LFT's; Complete Time: 21:11 [facility] 02/25 19:35 Order name: Magnesium; Complete Time: 21:11 [facility] 02/25 19:35 Order name: NT PRO-BNP; Complete Time: 21:11 [facility] 02/25 19:35 Order name: PT-INR; Complete Time: 20:55 [facility] 02/25 19:35 Order name: Troponin HS; Complete Time: 21:11 [facility] 02/25 19:35 Order name: UDS; Complete Time: 23:13 [facility] 02/25 19:40 Order name: Rapid Strep; Complete Time: 21:11 [facility] 02/25 20:22 Order name: Lipase; Complete Time: 21:13 [facility] 02/25 20:44 Order name: SARS-COV-2 RT PCR; Complete Time: 21:46 [facility] 02/25 20:58 Order name: Throat Culture [facility] 02/25 22:16 Order name: Urine Dipstick-Ancillary; Complete Time: 23:13 [facility] 02/25 19:35 Order name: XRAY Chest (1 view); Complete Time: 21:11 [facility] 02/25 19:35 Order name: EKG; Complete Time: 19:36 [facility] 02/25 19:35 Order name: Cardiac monitoring; Complete Time: 19:41 [facility] 02/25 19:35 Order name: EKG - Nurse/Tech; Complete Time: 19:41 [facility] 02/25 19:35 Order name: IV Saline Lock; Complete Time: 20:33 [facility] 02/25 19:35 Order name: Labs collected and sent; Complete Time: 20:33 [facility] 02/25 19:35 Order name: O2 Per Protocol; Complete Time: 19:41 [facility] 02/25 19:35 Order name: O2 Sat Monitoring; Complete Time: 19:41 [facility] 02/25 19:35 Order name: Urine Dipstick-Ancillary (obtain specimen); Complete Time: 22:20 [facility] 02/25 19:38 Order name: CT Head Brain wo Cont; Complete Time: 21:46 [facility] 02/25 19:38 Order name: CT Abd/Pelvis - Without Contrast; Complete Time: 20:55 [facility] 02/25 23:17 Order name: Urine Microscopic Only; Complete Time: 00:52 [facility] 02/25 19:36 Order name: Orthostatics; Complete Time: 20:33 [facility] Administered Medications: 02/25 20:30 Drug: NS 0.9% 1000 ml Route: IV; Rate: 1000 ml; Site: right antecubital; 3 02/26 00:35 Follow up: Response: No adverse reaction; IV Status: Completed infusion; IV Intake: ll3 1000ml 02/25 20:30 Drug: Zofran (Ondansetron) 4 mg Route: IVP; Site: right antecubital; [facility] 02/26 00:35 Follow up: Response: No adverse reaction [facility] 02/25 20:34 Drug: Ativan (LORazepam) 1 mg Route: IVP; Site: right antecubital; 3 02/26 00:35 Follow up: Response: No adverse reaction [facility] 00:34 Drug: Rocephin (cefTRIAXone) 1 grams Route: IV; Rate: per protocol; Site: right 3 antecubital; Disposition Summary: 02/26/22 00:15 Discharge Ordered Location: Home [facility] Problem: new [facility] Symptoms: have improved [facility] Condition: Stable [facility] Diagnosis - Dizziness and giddiness [facility] - Essential (primary) hypertension 7 - Cannabis abuse 7 - Flank Pain [facility] Followup: [facility] - With: Private Physician - When: 1 - 2 days - Reason: Worsening of condition, Recheck today's complaints, Continuance of care, Re-evaluation by your physician Discharge Instructions: - Discharge Summary Sheet [facility] - Cannabis Use Disorder mh7 - Hypertension, Adult, Izky-hs-Btcv 7 - Dizziness, Zawk-so-Bkpo mh7 - Flank Pain, Adult, Jjqb-mo-Chcw [facility] Forms: - Medication Reconciliation Form [facility] - Thank You Letter mh7 - Antibiotic Education 7 - Prescription Opioid Use [facility] Prescriptions: - Cipro 500 mg Oral Tablet - take 1 tablet by ORAL route every 12 hours for 10 days; 20 tablet; Refills: 0, mh7 Product Selection Permitted Signatures: Dispatcher [employer] Lex Kevin, RN RN jb4 Sanjeev Tesfaye MD MD mh7 Ileana Shankar RN RN ll3 Corrections: (The following items were deleted from the chart) 02/25 19:20 19:19 Immunization history: Adult Immunizations mary jb4 20:44 19:41 COVID-19/FLU A+B+MOL.LAB.BRZ ordered. EDMS EDMS
--- NOTE | 2022-02-26 00:15 | ER ---
Nurse's Notes [facility] Name: Kana Arroyo Age: 32 yrs Sex: Male : 1990 Arrival Date: 02/25/2022 Time: 19:18 Bed 6 Private MD: Diagnosis: Dizziness and giddiness;Essential (primary) hypertension;Cannabis abuse;Flank Pain Presentation: 02/25 19:18 Chief complaint: EMS states: Pt was seen on Saturday at [facility] for generalized weakness. jb4 They gave him amoxicillin. Pt is reporting left side pain. Coronavirus screen: At this time, the client does not indicate any symptoms associated with coronavirus-19. Ebola Screen: No symptoms or risks identified at this time. Initial Sepsis Screen: Does the patient meet any 2 criteria? No. Patient's initial sepsis screen is negative. Does the patient have a suspected source of infection? No. Patient's initial sepsis screen is negative. Risk Assessment: Do you want to hurt yourself or someone else? Patient reports no desire to harm self or others. Onset of symptoms was February 25, 2022. Transition of care: patient was not received from another setting of care. 19:18 Method Of Arrival: EMS: [facility] jb4 19:18 Acuity: AUTUMN 3 jb4 Historical: - Allergies: 19:19 No Known Allergies; jb4 - Home Meds: 19:19 BP PILL, UNKNOWN NAME [Active]; irbesartan 150 mg Oral tab [Active]; rosuvastatin 10 mg jb4 Oral tab 1 tab once daily [Active]; setraline [Active]; - PMHx: 19:19 Anxiety; Hyperlipidemia; Hypertension; jb4 - Immunization history:: Adult Immunizations unknown. - Social history:: Smoking status: unknown. Screenin:37 Abuse screen: Denies threats or abuse. Nutritional screening: No deficits noted. ll3 Tuberculosis screening: No symptoms or risk factors identified. Fall Risk No fall in past 12 months (0 pts). No secondary diagnosis (0 pts). IV access (20 points). Ambulatory Aid- None/Bed Rest/Nurse Assist (0 pts). Gait- Normal/Bed Rest/Wheelchair (0 pts) Mental Status- Oriented to own ability (0 pts). Total Bonilla Fall Scale indicates No Risk (0-24 pts). Assessment: 20:37 General: Appears uncomfortable, Behavior is calm, cooperative. Pain: Complains of pain ll3 in chest Quality of pain is described as Tightness. Neuro: Level of Consciousness is awake, alert, obeys commands, Oriented to person, place, time, situation. Neuro: Reports Anxiety. Derm: Skin is pink, warm \T\ dry. 22:19 Reassessment: Patient appears in no apparent distress at this time. No changes from lg3 previously documented assessment. Patient and/or family updated on plan of care and expected duration. Pain level reassessed. Patient is alert, oriented x 3, equal unlabored respirations, skin warm/dry/pink. 23:30 Reassessment: Patient appears in no apparent distress at this time. Patient and/or ll3 family updated on plan of care and expected duration. Pain level reassessed. Patient is alert, oriented x 3, equal unlabored respirations, skin warm/dry/pink. Patient states feeling better. 02/26 00:51 Reassessment: No changes from previously documented assessment. Patient and/or family ll3 updated on plan of care and expected duration. Pain level reassessed. Patient is alert, oriented x 3, equal unlabored respirations, skin warm/dry/pink. Vital Signs: 02/25 19:19 BP 156 / 115; Pulse 86; Resp 17 S; Temp 98.0(O); Pulse Ox 100% on R/A; Weight 92.99 kg [facility] (R); Height 5 ft. 9 in. (175.26 cm) (R); Pain 6/10; 20:07 BP 153 / 102 Supine; ll3 20:12 BP 151 / 106 Sitting; ll3 20:17 BP 146 / 110 Standing; ll3 20:58 BP 154 / 113; Pulse 83; Resp 19; Pulse Ox 99% on R/A; lg3 22:20 BP 143 / 110; Pulse 76; Resp 21 S; Pulse Ox 99% on R/A; lg3 23:30 BP 128 / 90; Pulse 74; Resp 18; Pulse Ox 99% on R/A; ll3 02/26 00:30 BP 142 / 106; Pulse 77; Resp 20; Pulse Ox 98% on R/A; ll3 02/25 19:19 Body Mass Index 30.27 (92.99 kg, 175.26 cm) [facility] ED Course: 02/25 19:18 Patient arrived in ED. jb4 19:19 Triage completed. jb4 19:19 Sanjeev Tesfaye MD is Attending Physician. mh7 19:19 Arm band placed on right wrist. jb4 19:52 CT Head Brain wo Cont In Process Unspecified. EDMS 19:56 Rebecca Denise, RN is Primary Nurse. lg3 19:58 CT Abd/Pelvis - Without Contrast In Process Unspecified. EDMS 20:32 Inserted saline lock: 20 gauge in right antecubital area, using aseptic technique. wm 20:32 Initial lab(s) drawn, by me, sent to lab. wm 20:33 Rapid Strep Sent. wm 20:37 Patient has correct armband on for positive identification. Placed in gown. Bed in low ll3 position. Call light in reach. Side rails up X 1. corn crop supervisor on. Pulse ox on. NIBP on. 20:50 XRAY Chest (1 view) In Process Unspecified. EDMS 22:20 Urine collected: clean catch specimen, cloudy. 05/ 00:52 No provider procedures requiring assistance completed. ll3 00:56 IV discontinued, intact, bleeding controlled, No redness/swelling at site. Pressure ll3 dressing applied. Administered Medications: 02/25 20:30 Drug: NS 0.9% 1000 ml Route: IV; Rate: 1000 ml; Site: right antecubital; ll3 16 00:35 Follow up: Response: No adverse reaction; IV Status: Completed infusion; IV Intake: ll3 1000ml 02/25 20:30 Drug: Zofran (Ondansetron) 4 mg Route: IVP; Site: right antecubital; ll3 02/26 00:35 Follow up: Response: No adverse reaction ll3 02/25 20:34 Drug: Ativan (LORazepam) 1 mg Route: IVP; Site: right antecubital; ll3 02/26 00:35 Follow up: Response: No adverse reaction ll3 00:34 Drug: Rocephin (cefTRIAXone) 1 grams Route: IV; Rate: per protocol; Site: right ll3 antecubital; Medication: 02/25 20:37 VIS not applicable for this client. ll3 Intake: 02/26 00:35 IV: 1000ml; Total: 1000ml. ll3 Outcome: 00:15 Discharge ordered by . [email or web address] 00:56 Discharged to home ambulatory. ll3 00:56 Condition: stable 00:56 Discharge instructions given to patient, Instructed on discharge instructions, follow up and referral plans. medication usage, Demonstrated understanding of instructions, follow-up care, medications, Prescriptions given X 1. 00:57 Patient left the ED. ll3 Signatures: Dispatcher [employer] EDLex Vazquez, RN RN jb4 Vesta Alarcon RN RN jl7 Rebecca Denise RN RN lg3 Sanjeev Tesfaye MD MD mh7 Aruna Sanz Ileana Shankar RN RN ll3 Corrections: (The following items were deleted from the chart) 02/25 19:20 19:19 Immunization history: Adult Immunizations mary jb4 20:44 20:33 COVID-19/FLU A+B+MOL.LAB.BRMitchell drawn and sent. EDND
[2022-02-26] MEDS ORDERED: CEFTRIAXONE 1000 MG/VIAL ONE (00:30)
[2022-02-26] MEDS ORDERED: NA CHLORIDE 0.9% 50 ML ONE (00:30)
[2022-02-26 00:51] LABS: Urine Bacteria <20 /HPF (NONE SEEN); Urine RBC <5 /HPF (NONE SEEN)
[2022-02-26 01:16] VITALS: BP 142/106; O2SAT 98
[2022-02-26 01:21] VITALS: TEMP 98
--- NOTE | 2022-02-26 10:04 | EKG ---
Test Date: 2022-02-25 Test Time: 19:20:10 Leadership Coach: JESSE MEASUREMENT RESULTS: Intervals: Rate: 81 TN: 164 QRSD: 90 QT: 360 QTc: 418 [place]: P: 46 TN: 164 QRS: 20 T: 62 INTERPRETIVE STATEMENTS: Normal sinus rhythm Normal ECG Compared to ECG 03/27/2021 02:12:05 Sinus arrhythmia no longer present Electronically Signed On 02-26-22 10:02:34 CDT by Panchito Corbin
== END 2022-02-26 00:57 | disposition home or self-care (01) ==
LOC: ER 19:15
DX: R42 Dizziness and giddiness (principal); F12.10 Cannabis abuse, uncomplicated; I10 Essential (primary) hypertension; R10.9 Unspecified abdominal pain; F41.9 Anxiety disorder, unspecified; E78.5 Hyperlipidemia, unspecified; Z20.822 Contact with and (suspected) exposure to COVID-19
CPT/HCPCS: 96361; 93005; 87070; 85025; 80048; 36415; 83735; 85610; 80076; 87081; 84484; 83690; 83880; 80307; 70450; 74176; 71045; 96375; 96374; 99285; U0003; J7030; J2405; 81003; 81015

== ENCOUNTER 2024-04-04 22:35 | Emergency (ER) | payer OTHER, SELFPAY ==
[2024-04-05] MEDS ORDERED: MECLIZINE HCL 12.5 MG TAB ONE (00:52)
[2024-04-05] MEDS ORDERED: NA CHLORIDE 0.9% 1,000 ML ONE (00:52)
[2024-04-05 01:35] LABS: Absolute Eosinophils 0.2 K/uL (0-0.5); Absolute Lymphocytes (CBC) 3.9 K/uL (0.7-4.9); Absolute Monocytes 0.8 K/uL (0.1-1.3); Absolute Neutrophil 6.1 K/uL (1.8-8.0); Basophils % 0.4 % (0-1.3); Eosinophils % 1.4 % (0-4.4); Hematocrit 44.1 % (39.6-49.0); Hemoglobin 15.3 g/dL (13.6-17.9); Lymphocytes % 35.5 % (15.3-44.8); MCH 29.9 pg (27.0-35.0); MCHC 34.6 g/dL (32.0-36.0); MCV 86.5 fL (80-100); MPV 11.2 fL (7.6-11.3); Neutrophils % 55.7 % (41.7-73.7); Nucleated Red Blood Cells % 0.2 % (0-0); Platelets 166 thou/uL (152-406); Red Cell Distribution Width 12.9 % (12.1-15.2)
[2024-04-05 02:05] LABS: ALT/SGPT 87 U/L (16-61); Albumin/Globulin Ratio 1.1 (1.1-1.8); Alkaline Phosphatase 91 U/L (45-117); Anion Gap 7.9 mEq/L (5.0-15.0); BUN Blood Urea Nitrogen 15 mg/dL (7-18); Bicarbonate 28 mEq/L (21-32); Bilirubin Total 0.5 mg/dL (0.2-1.0); Globulin 3.7 g/dL (2.3-3.5); Glomerular Filtration Rate 119 ml/min (=/>90); Glucose Level 110 mg/dL (74-106); Protein, Total 7.7 g/dL (6.4-8.2); Sodium Level 139 mEq/L (136-145); Troponin High Sensitivity 3.6 pg/mL (<58.9)
[2024-04-05 02:06] LABS: AST/SGOT 30 U/L (15-37); Bilirubin Direct < 0.2 mg/dL (0-0.2); Bilirubin Indirect, Calculated 0.3 mg/dL (0.2-0.8); Magnesium 2.2 mg/dL (1.6-2.4); Potassium 3.9 mEq/L (3.5-5.1)
[2024-04-05 02:06] LABS: Barbiturates NEGATIVE (NEGATIVE); Benzodiazepines NEGATIVE (NEGATIVE); Cocaine NEGATIVE (NEGATIVE); METHAMPHETAM NEGATIVE (NEGATIVE); Methadone NEGATIVE (NEGATIVE); Opiates NEGATIVE (NEGATIVE); Phencyclidine NEGATIVE (NEGATIVE); THC Cannibis NEGATIVE (NEGATIVE)
--- NOTE | 2024-04-05 03:23 | EDPHYS ---
Physician Documentation [facility] Name: Kana Arroyo Age: 34 yrs Sex: Male : 1990 Arrival Date: 04/04/2024 Time: 22:35 Bed 17 Private MD: ED Physician HPI: 04/05 00:15 This 34 yrs old Male presents to ER via Unassigned with complaints of cp Dizziness. 00:15 Reports head feels like in a "fog". cp 00:15 The patient presents with dizziness, lightheadedness. Onset: The symptoms/episode cp began/occurred 2 week(s) ago. Associated signs and symptoms: Pertinent positives: fatigue. 00:15 Patient's baseline: Neuro: alert and fully oriented, Motor: no deficits, Ambulation: cp walks without assistance, Speech: normal. Historical: - Allergies: 04/04 23:00 No Known Allergies; jw7 - PMHx: 23:00 Anxiety; Hyperlipidemia; Hypertension; Major depressive disorder; Umbilical hernia; jw7 - PSHx: 23:00 Tonsillectomy; rhinoplasty; jw7 - Immunization history:: Adult Immunizations up to date, Client reports having NOT received the Covid vaccine. Flu vaccine is not up to date. - Infectious Disease History:: Denies. - Social history:: Smoking status: Patient/guardian denies using tobacco, Stopped _ months ago 2 Patient uses alcohol, but reports only rare drinking. Patient/guardian denies using street drugs, IV drugs. ROS: 04/05 00:20 Constitutional: Positive for fatigue, weight loss, Negative for body aches, chills, cp fever, poor PO intake, 00:20 Eyes: Negative for injury, pain, redness, and discharge, cp 00:20 ENT: Negative for drainage from ear(s), ear pain, sore throat, difficulty swallowing, difficulty handling secretions, 00:20 Cardiovascular: Negative for chest pain, edema, palpitations, 00:20 Respiratory: Negative for cough, shortness of breath, wheezing, 00:20 Abdomen/GI: Negative for abdominal pain, vomiting, diarrhea, constipation, 00:20 Neuro: Positive for dizziness, 00:20 All other systems are negative, Exam: 00:25 Constitutional: The patient appears in no acute distress, alert, awake, cp non-diaphoretic, non-toxic, well developed, well nourished, 00:25 Head/Face: Normocephalic, atraumatic. cp 00:25 Eyes: Periorbital structures: appear normal, Pupils: equal, round, and reactive to light and accomodation, Extraocular movements: intact throughout, Conjunctiva: normal, no exudate, no injection, Sclera: no appreciated abnormality, Lids and lashes: appear normal, bilaterally, 00:25 ENT: External ear(s): are unremarkable, Nose: is normal, Mouth: Lips: moist, Oral mucosa: pink and intact, moist, Posterior pharynx: Airway: no evidence of obstruction, patent, 00:25 Chest/axilla: Inspection: normal, Palpation: is normal, no crepitus, no tenderness, 00:25 Respiratory: the patient does not display signs of respiratory distress, Respirations: normal, no use of accessory muscles, no retractions, labored breathing, is not present, Breath sounds: are clear throughout, no decreased breath sounds, no stridor, no wheezing, 00:25 Abdomen/GI: Exam negative for discomfort, distension, guarding, Inspection: abdomen appears normal, 00:25 Neuro: Orientation: to person, place \\T\\ time. Mentation: is normal, Motor: moves all fours, strength is normal, Sensation: is normal, Gait: is steady, at a normal pace, without difficulty, Vital Signs: 04/04 23:00 BP 157 / 107; Pulse 70; Resp 18 S; Temp 98.2(O); Pulse Ox 97% on R/A; Pain 0/10; [facility] 04/05 00:00 BP 146 / 100; Pulse 66; Resp 17 S; Pulse Ox 97% on R/A; [facility] 01:00 BP 136 / 91; Pulse 94; Resp 16 S; Pulse Ox 96% on R/A; [facility] 02:00 BP 117 / 79; Pulse 60; Resp 15 S; Pulse Ox 97% on R/A; [facility] 03:30 BP 127 / 77; Pulse 58; Resp 15 S; Temp 97.3(O); Pulse Ox 98% on R/A; [facility] 04/04 23:00 Pain Scale: Adult [facility] MDM: 04/04 23:02 Patient medically screened. cp 04/05 02:28 Data reviewed: vital signs. ED course: Patient signed out to me with pending CT scan of ec2 the head. Lab work is unremarkable. Plan is to follow-up patient's symptoms as well as his CT scan of the head.. 03:18 ED course: CT scan of the head shows no acute intracranial abnormality. On reassessment ec2 patient is well-appearing no acute distress. Doubt ischemic stroke given patient's examination. Will discharge home have the patient follow-up with his primary care doctor. Return precautions given. . 03:28 ED course: EKG independently reviewed and interpreted by me, shows normal sinus rhythm, ec2 rate of 56, no acute ST segment elevations, intervals nonconcerning.. 04/05 00:08 Order name: Basic Metabolic Panel; Complete Time: 02:25 cp 04/05 00:08 Order name: CBC with Diff cp 04/05 00:08 Order name: LFT's; Complete Time: 02:25 cp 04/05 00:08 Order name: Magnesium; Complete Time: 02:25 cp 04/05 00:08 Order name: Troponin HS; Complete Time: 02:25 cp 04/05 00:08 Order name: Urinalysis W/Microscopic cp 04/05 00:08 Order name: UDS; Complete Time: 02:25 cp 04/05 01:46 Order name: CBC Smear Scan EDMS 04/05 01:33 Order name: CT Head Brain wo Cont cp 04/05 00:08 Order name: EKG; Complete Time: 00:08 cp 04/05 00:08 Order name: Cardiac monitoring; Complete Time: 01:08 cp 04/05 00:08 Order name: EKG - Nurse/Tech; Complete Time: 03:47 cp 04/05 00:08 Order name: IV Saline Lock; Complete Time: 00:38 cp 04/05 00:08 Order name: Labs collected and sent; Complete Time: 00:38 cp 04/05 00:08 Order name: O2 Per Protocol; Complete Time: 00:38 cp 04/05 00:08 Order name: O2 Sat Monitoring; Complete Time: 00:38 cp Administered Medications: 00:55 Drug: NS 0.9% IV 1000 ml IV at 1 bolus Per protocol; 1000 mL bolus Route: IV; Rate: 1 jw7 bolus; Site: right antecubital; 03:49 Follow up: Response: No adverse reaction; IV Status: Completed infusion; IV Intake: jw7 1000ml 01:08 Drug: Meclizine PO 25 mg PO once Route: PO; jw7 03:49 Follow up: Response: No adverse reaction; Marked relief of symptoms jw7 Disposition: 03:23 I agree with the assessment and plan of care. ec2 Disposition Summary: 04/05/24 03:22 Discharge Ordered Notes: Location: Home ec2 Condition: Stable ec2 Diagnosis - Dizziness and giddiness ec2 Followup: ec2 - With: Private Physician - When: - Reason: Re-evaluation by your physician Discharge Instructions: - Discharge Summary Sheet ec2 - Dizziness, [id number] ec2 Forms: - Medication Reconciliation Form ec2 - Antibiotic Education ec2 - Prescription Opioid Use ec2 - Patient Portal Instructions ec2 - Leadership Thank You Letter ec2 Prescriptions: - Meclizine 25 mg Oral Tablet - take 1 tablet ORAL route every 8 hours As needed; 30 tablet; Refills: 0, ec2 Product Selection Permitted Signatures: Dispatcher [employer] EDPR Deacon Lanza PA PA cp Waits, Jodi, RN RN jw7 Loyd Silverio MD MD ec2 Corrections: (The following items were deleted from the chart) 00:08 00:08 BASIC METABOLIC PANEL+C.LAB.BRZ ordered. EDPR EDPR 00:08 00:08 CBC+H.LAB.BRZ ordered. EDPR EDPR 00:08 00:08 HEPATIC FUNCTION+C.LAB.BRZ ordered. EDPR EDPR 00:08 00:08 MAGNESIUM+C.LAB.BRZ ordered. EDPR EDPR 00:08 00:08 Troponin High Sensitivity+C.LAB.BRZ ordered. EDPR EDPR 00:08 00:08 Urinalysis W/Microscopic+U.LAB.BRZ ordered. EDPR EDPR 00:08 00:08 URINE DRUG SCREEN+UC.LAB.BRZ ordered. EDPR EDMS 01:34 01:34 Head Brain Wo Cont+CT.RAD.BRZ ordered. EDPR EDPR :39 00:30 The patient presents with dizziness, lightheadedness, cp cp :39 00:30 Onset: The symptoms/episode began/occurred 2 week(s) ago, cp cp :39 00:30 Reports head feels like in a "fog". cp cp :39 00:30 Associated signs and symptoms: Pertinent positives: fatigue, cp cp :39 00:30 This 34 yrs old Male presents to ER via Unassigned with complaints of cp Dizziness. cp
--- NOTE | 2024-04-05 03:23 | ER ---
Nurse's Notes [facility] Name: Kana Arroyo Age: 34 yrs Sex: Male : 1990 Arrival Date: 04/04/2024 Time: 22:35 Bed 17 Private MD: Diagnosis: Dizziness and giddiness Presentation: 04/04 23:00 Chief complaint: Patient states: I've been having dizzy spells for the last two weeks jw7 and it got really bad today; I felt like I was going to fall. 23:00 Coronavirus screen: At this time, the client does not indicate any symptoms associated jw7 with coronavirus-19. Ebola Screen: No symptoms or risks identified at this time. 23:00 Method Of Arrival: Ambulatory jw7 23:00 Initial Sepsis Screen: Does the patient meet any 2 criteria? No. Patient's initial jw7 sepsis screen is negative. Does the patient have a suspected source of infection? No. Patient's initial sepsis screen is negative. Risk Assessment: Do you want to hurt yourself or someone else? Patient reports no desire to harm self or others. Onset of symptoms was March 22, 2024. 23:00 Acuity: AUTUMN 3 jw7 Triage Assessment: 23:00 General: Appears in no apparent distress. comfortable, Behavior is calm, cooperative, jw7 appropriate for age. Pain: Denies pain. EENT: No deficits noted. No signs and/or symptoms were reported regarding the EENT system. Neuro: Level of Consciousness is awake, alert, obeys commands, Oriented to person, place, time, situation, Appropriate for age Reports dizziness. Cardiovascular: Denies chest pain, palpitations, shortness of breath, Heart tones S1 S2 present Capillary refill < 3 seconds Clubbing of nail beds is absent JVD is absent Patient's skin is warm and dry. Respiratory: Airway is patent Trachea midline Respiratory effort is even, unlabored, Respiratory pattern is regular, symmetrical. GI: Abdomen is flat, non-distended, Bowel sounds present X 4 quads. Abd is soft and non tender X 4 quads. : No deficits noted. No signs and/or symptoms were reported regarding the genitourinary system. Derm: Skin is intact, is healthy with good turgor, Skin is dry, Skin is normal, Skin temperature is warm. Musculoskeletal: Circulation, motion, and sensation intact. Range of motion: intact in all extremities. Historical: - Allergies: 23:00 No Known Allergies; jw7 - PMHx: 23:00 Anxiety; Hyperlipidemia; Hypertension; Major depressive disorder; Umbilical hernia; jw7 - PSHx: 23:00 Tonsillectomy; rhinoplasty; jw7 - Immunization history:: Adult Immunizations up to date, Client reports having NOT received the Covid vaccine. Flu vaccine is not up to date. - Infectious Disease History:: Denies. - Social history:: Smoking status: Patient/guardian denies using tobacco, Stopped _ months ago 2 Patient uses alcohol, but reports only rare drinking. Patient/guardian denies using street drugs, IV drugs. Screenin:[address] [facility] ED Fall Risk Assessment (Adult) History of falling in the last 3 months, jw7 including since admission No falls in past 3 months (0 pts) Confusion or Disorientation No (0 pts) Intoxicated or Sedated No (0 pts) Impaired Gait No (0 pts) Mobility Assist Device Used No (0 pt) Altered Elimination No (0 pt) Score/Fall Risk Level 0 - 2 = Low Risk Oriented to surroundings, Maintained a safe environment, Educated pt \T\ family on fall prevention, incl call for assistance when getting out of bed. Abuse screen: Denies threats or abuse. Denies injuries from another. Nutritional screening: No deficits noted. Tuberculosis screening: No symptoms or risk factors identified. Assessment: 23:00 General: See Triage Assessment. jw7 04/05 00:00 Reassessment: Patient appears in no apparent distress at this time. No changes from 7 previously documented assessment. Patient and/or family updated on plan of care and expected duration. Pain level reassessed. Patient is alert, oriented x 3, equal unlabored respirations, skin warm/dry/pink. 01:00 Reassessment: Patient appears in no apparent distress at this time. No changes from 7 previously documented assessment. Patient and/or family updated on plan of care and expected duration. Pain level reassessed. Patient is alert, oriented x 3, equal unlabored respirations, skin warm/dry/pink. 02:00 Reassessment: Patient appears in no apparent distress at this time. Patient and/or [facility] family updated on plan of care and expected duration. Pain level reassessed. Patient is alert, oriented x 3, equal unlabored respirations, skin warm/dry/pink. Patient states feeling better. Patient states symptoms have improved. 03:30 Reassessment: Patient appears in no apparent distress at this time. No changes from jw7 previously documented assessment. Patient and/or family updated on plan of care and expected duration. Pain level reassessed. Patient is alert, oriented x 3, equal unlabored respirations, skin warm/dry/pink. Vital Signs: 04/04 23:00 BP 157 / 107; Pulse 70; Resp 18 S; Temp 98.2(O); Pulse Ox 97% on R/A; Pain 0/10; jw7 04/05 00:00 BP 146 / 100; Pulse 66; Resp 17 S; Pulse Ox 97% on R/A; jw7 01:00 BP 136 / 91; Pulse 94; Resp 16 S; Pulse Ox 96% on R/A; jw7 02:00 BP 117 / 79; Pulse 60; Resp 15 S; Pulse Ox 97% on R/A; jw7 03:30 BP 127 / 77; Pulse 58; Resp 15 S; Temp 97.3(O); Pulse Ox 98% on R/A; jw7 04/04 23:00 Pain Scale: Adult jw7 ED Course: 04/04 22:40 Patient arrived in ED. ae5 22:42 Deacon Lanza PA is PHCP. cp 22:42 Loyd Silverio MD is Attending Physician. cp 23:00 Arm band placed on. jw7 23:00 Patient has correct armband on for positive identification. Bed in low position. Call jw7 light in reach. Side rails up X 1. Provided Education on: Use of Call Light. 04/05 00:13 Kristen Morel, RN is Primary Nurse. jw7 00:38 Initial lab(s) drawn, by al, sent to lab. Urine collected: clean catch specimen, clear. jw7 Inserted saline lock: 20 gauge in right antecubital area, using aseptic technique. Blood collected. 00:39 UDS Sent. jw7 00:39 Urinalysis W/Microscopic Sent. jw7 00:39 Basic Metabolic Panel Sent. jw7 00:39 CBC with Diff Sent. jw7 00:39 LFT's Sent. jw7 00:39 Magnesium Sent. jw7 00:39 Troponin HS Sent. jw7 02:08 CT Head Brain wo Cont In Process Unspecified. EDMS 02:16 Triage completed. jw7 03:49 No provider procedures requiring assistance completed. IV discontinued, intact, jw7 bleeding controlled, No redness/swelling at site. Pressure dressing applied. Administered Medications: 00:55 Drug: NS 0.9% IV 1000 ml IV at 1 bolus Per protocol; 1000 mL bolus Route: IV; Rate: 1 jw7 bolus; Site: right antecubital; 03:49 Follow up: Response: No adverse reaction; IV Status: Completed infusion; IV Intake: jw7 1000ml 01:08 Drug: Meclizine PO 25 mg PO once Route: PO; jw7 03:49 Follow up: Response: No adverse reaction; Marked relief of symptoms jw7 Medication: 03:50 VIS not applicable for this client. jw7 Intake: 03:49 IV: 1000ml; Total: 1000ml. jw7 Outcome: 03:22 Discharge ordered by . ec2 03:49 Discharged to home ambulatory, jw7 03:49 Condition: stable 03:49 Discharge instructions given to patient, Instructed on discharge instructions, follow up and referral plans. medication usage, Demonstrated understanding of instructions, follow-up care, medications, Prescriptions given X 1, 03:50 Patient left the ED. jw7 Signatures: Dispatcher [employer] EDSC Deacon Lanza PA PA cp Waits, Jodi, RN RN jw7 Loyd Silverio MD MD ec2 Patricia Okeefe ae5 Corrections: (The following items were deleted from the chart) 02:16 06/22 23:00 BP 157 / 107; Pulse 70bpm; Resp 18bpm; Spontaneous; Pulse Ox 97% RA; Temp jw7 98.2F Oral; Pain 0/10, Adult; jw7 23 03:49 02:00 Reassessment: Patient appears in no apparent distress at this time. No changes jw7 from previously documented assessment. Patient and/or family updated on plan of care and expected duration. Pain level reassessed. Patient is alert, oriented x 3, equal unlabored respirations, skin warm/dry/pink. jw7
[2024-04-05 03:50] LABS: Specific Gravity > 1.030 (1.005-1.030); Sqamous Epithelial None Seen /HPF (None Seen); Urine Bacteria None Seen /HPF (<20); Urine Bilirubin NEGATIVE (Negative); Urine Blood 1+ (Negative); Urine Clarity Clear (Clear); Urine Color Light-Yellow (Yellow); Urine Culture Reflex Order NOT NEEDED; Urine Glucose NEGATIVE (Negative); Urine Ketones NEGATIVE (Negative); Urine Micro Reflex YN NO BILL MICROSCOPIC; Urine Nitrite NEGATIVE (Negative); Urine Protein TRACE (Negative); Urine Urobilinogen 1+ (Normal); Urine WBC <5 /HPF (<5); Urine pH 6.5 (5.0-7.0)
[2024-04-05 04:41] VITALS: BP 127/77; TEMP 97.3; O2SAT 98
[2024-04-05 06:58] LABS: Blood Morphology Comment NOT SEEN (NOT SEEN); Platelet Estimate ADEQ; White Blood Cell Scan OK (OK)
--- NOTE | 2024-04-06 13:06 | EKG ---
Test Date: 2024-04-05 Test Time: 03:25:42 Tacking Stitch Remover: HANNA MEASUREMENT RESULTS: Intervals: Rate: 56 TN: 176 QRSD: 90 QT: 436 QTc: 420 Almond: P: 47 TN: 176 QRS: 52 T: 43 INTERPRETIVE STATEMENTS: Sinus bradycardia Otherwise normal ECG Compared to ECG 02/25/2022 19:20:10 Sinus rhythm no longer present Electronically Signed On 04-06-24 13:03:31 CDT by Roel Larios
--- NOTE | 2024-04-06 21:50 | RAD REPORT ---
EXAM DESCRIPTION: CT - Head Brain Wo Cont - 04/05/2024 7:17 am CLINICAL HISTORY: 34 years, Male, DIZZINESS COMPARISON: 02/25/2022 FINDINGS: Multiple transaxial tomograms of the brain were obtained from the base of the skull to the vertex without contrast. An individualized dose optimization technique, Automated Exposure Control, was utilized for the perfo rmed procedure. Brain: Brain parenchyma as well as the cerna-white matter differentiation demonstrate to be within nor mal limits. There is no evidence for acute intraparenchymal hemorrhage. There is no midline shifts an d/or mass effect. No focal areas of hypodensities.Cerebellar tonsillar ectopia is again identified. Ventricles: Lateral ventricles and cisterns displace normal appearance. Vasculature: No visualized abnormalities in the arteries or dural venous sinuses. Scalp/skull: The calvarium demonstrate to be intact with no evidence for acute bony injuries. Sinuses: The visualized paranasal sinuses and mastoid air cells demonstrate to be clear. Orbits: No significant abnormalities in the visualized orbital structures. IMPRESSION: No evidence for acute intraparenchymal hemorrhage, infarct or mass effect. Unchanged tonsillar ectopia. Electronically signed by: Mark Alberto MD 04/05/2024 03:14 AM CDT RP Due to temporary technical issues with the PACS/Fluency reporting system, reports are being signed by the in house radiologists without review as a courtesy to insure prompt reporting. The interpreting radiologist is fully responsible for the content of the report.
== END 2024-04-05 03:50 | disposition home or self-care (01) ==
LOC: ER 22:35
DX: R42 Dizziness and giddiness (principal); R53.83 Other fatigue
CPT/HCPCS: 93005; 85025; 81001; 80048; 36415; 83735; 80076; 84484; 80307; 70450; J8597; J7030; 96360; 96361; 99284

== ENCOUNTER 2024-09-11 07:53 | Emergency (ER) | payer OTHER ==
--- OUTSIDE RECORDS SUMMARY | 2024-09-11 07:57 | XMS REPORT | Continuity of Care Document ---
Author Name Unknown Address [address] [facility] [address] [place] [address] [facility] Address [address] [facility] [place] [address] Care Team Providers Care Warper Fixer Name Role Phone MANAV ROBERTS Primary Care Physician RUBI Akins Attending Clinician Unavailable BIENVENIDO FABIAN Attending Clinician Unavailable BIENVENIDO FABIAN Attending Clinician Unavailable LUZ NOLAN Attending Clinician Unavailab LUIS A Bauman Attending Clinician Unavailable LUIS A ERICKSON Attending Clinician Unavailable VENESSA AREVALO Attending Clinician Unavailable FE NARAYANAN Attending Clinician Unavailable CIRA TAPIA Attending Clinician Unavailable Cira Tapia MD Attending Clinician [phone] KRISTINA REID Attending Clinician Unavailab Kristina Huang DO Attending Clinician [phone] BIENVENIDO FABIAN Admitting Clinician Unavailable KRISTINA REID Admitting Clinician Unavailab shaylee Payers Payer Name Policy Type Policy Number Effective Date Expirati on Date Source AET[employer] MP [facility] [address] [facility] 94 ON 9 [id number] 2023 00:00:00 ARIMatildeNATHALY Thomas/ ROSIE LLAMAS [id number] 2023 00:00:00 J LUIS PERRIN FROM [facility] [id number] 2021 00:00:00 Problems Condition Name Condition Details Condition Category Status Onset Date Resolution Date Last Treatment Date Treating Clinician Comments Source Well adult exam Well adult exam Disease Active 02-12 00:00: 00 Rosie Sesandyold - Externa l Chronic pain of left knee Chronic pain of left knee Disease Active 02-12 00:00: 00 Rosie Seybold - Externa l Mild major depression Mild major depression Disease Active 02-12 00:00: 00 Rosie Seybold - Externa l Chronic bilateral thoracic back pain Chronic bilateral thoracic back pain Disease Active 02-12 00:00: 00 Rosie Sesandyold - Externa l Hypertensi on Hypertensi on Disease Active 01-10 00:00: 00 Rosie Sesandyold - Externa l Hyperlipid emia Hyperlipid emia Disease Active 01-10 00:00: 00 Rosie Yipold - Externa l Depression Depression Disease Active 01-10 00:00: 00 Rosie Seybold - Externa l Class 2 severe obesity due to excess calories with serious comorbidit y and body mass index (BMI) of 35.0 to 35.9 in adult Class 2 severe obesity due to excess calories with serious comorbidit y and body mass index (BMI) of 35.0 to 35.9 in adult Disease Active 01-10 00:00: 00 Rosie Sesandyold - Externa l No known active problems No known active problems Disease [facility] Allergies, Adverse Reactions, Alerts Allergy Name Allergy Type Status Severity Reaction(s) Onset Date Inactive Date Treating Clinician Comments Source NO KNOWN ALLERGIE S Drug Class Active [facility] Social History Social Habit Start Date Stop Date Quantity Comments Source History SDOH Alcohol Std Drinks Rosie Stevens ybold - External History SDOH Alcohol Binge Rosie Stevensybold - External History of tobacco use Snuff User Rosie Stevensybold - External History SDOH Alcohol Frequency Rosie Stevensy bold - External Gender identity [facility] Sexual [facility] Alcohol intake 2023-09-03 00:00:00 2023-09-03 00:00:00 6 /d Rosie Llamas - External History of Social function 2023-07-01 00:00:00 2023-07-01 00:00:00 Rosie Llamas - External Alcohol Comment 2023-01-10 00:00:00 2023-01-10 00:00:00 moderately Rosie Llamas - External Education - What is the highest level of school you have completed or the highest degree you have received? 2023-01-10 00:00:00 2023-01-10 00:00:00 High school graduate Rosie Llamas - External Cigarettes smoked current (pack per day) - Reported 2023-01-09 00:00:00 2023-01-09 00:00:00 Rosie Llamas - External Cigarette pack-years 2023-01-09 00:00:00 2023-01-09 00:00:00 Rosie Llamas - External Tobacco use and exposure 2023-01-09 00:00:00 2023-01-09 00:00:00 Former smokeless tobacco user Rosie Llamas - External Exposure to SARS-CoV-2 (event) 2022-02-11 00:00:00 2022-02-21 23:13:00 Not sure [facility] Sex Assigned At 1990 00:00:00 1990 00[birth year]00:00 Rosie Llamas - Jacquelin Smoking Status Start Date Stop Date Source Tobacco smoking consumption unknown [facility] Ex-smoker 2023-01-09 00:00:00 2023-01-09 00:00:00 Rosie Mcdaniels External Medications Ordered Medication Name Filled Medication Name Start Date Stop Date Current Medication? Ordering Clinician Indication Dosage Frequency Signature (SIG) Comments Components Source iopamidol (ISOVUE 370-500 mL) injection 100 mL 05-13 09:00: 00 05-13 09:00 :00 No [id number] 100mL 100 mL, Intravenou s, ONCE, 1 dose, On Sat05/13/24 at 0400, Routine [facility] pantoprazol e (PROTONIX) 40 mg EC tablet 05-13 00:00: 00 Yes [id number] 40mg Take 1 tablet by mouth in the morning. [facility] acute hospital ondansetron (ZOFRAN) 4 mg tablet 05-13 00:00: 00 Yes [id number] 4mg Take 1 tablet by mouth every 8 (eight) hours as needed for Nausea and Vomiting (N/V). [facility] acute hospital Methylpredn isolone Sodium (SOLU-MEDRO L) 40 mg 2022-10 14:30: 00 09-03 14:48 :00 No [id number] 40mg Rosie mock Famotidine (Pepcid) 20 MG oral tablet 2022-10 00:00: 00 Yes [id number] 20mg Take 1 tablet (20 mg total) by mouth 2 times daily. Rosie mock cefTRIAXone (ROCEPHIN) 350 mg/mL in Lidocaine 1 % injection 1,000 mg 06-09 04:45: 00 06-09 04:20 :00 No 1000mg 1,000 mg, Intramuscu lar, ONCE, 1 dose, On 06/08/23 at 2345, VIKKI
Re ason for Anti-Infec tive: Documented Infection< br>Documen rory Infection Site: Skin / Soft Tissue
Duration of Therapy: 7 days [facility] acute hospital dexamethaso ne sod phos PF injection 6 mg 06-09 04:00: 00 06-09 04:20 :00 No 6mg 6 mg, Oral, ONCE, 1 dose, On 06/08/23 at 2300, 1 mL [facility] acute hospital Ibuprofen (MOTRIN) 600 MG oral Tablet 06-09 00:00: 00 Yes TAKE 1 TABLET BY MOUTH EVERY 6 HOURS NEEDED FOR PAIN (SCALE 4-6) OR TEMP ABOVE 101.3 F Rosie Beauchampa emili ibuprofen 600 mg tablet 06-08 00:00: 00 Yes [id number] 600mg Take 1 tablet by mouth every 6 (six) hours as needed for Pain (scale 4-6) or Temp > 38.5 C. General acute hospital amoxicillin -pot clavulanate 500 mg 500-125 mg tablet 8-26 00:00: 00 06-19 04:59 :00 No [id number] 500mg Take 1 tablet by mouth in the morning and 1 tablet at noon and 1 tablet in the evening. Do all this for 10 days. General acute hospital Rosuvastati n Calcium 10 MG oral Tablet 01-10 15:13: 01-10 00:00 :00 No 10mg Take 10 mg by mouth daily Rosie mock Irbesartan 150 MG oral Tablet 01-10 15:13: 01-10 00:00 :00 No 150mg Take 150 mg by mouth nightly Rosie mock busPIRone HCl 5 MG oral Tablet 01-10 00:00: 00 Yes [id number] 5mg QD Take 1 tablet (5 mg total) by mouth daily as needed Rosie mock Sertraline HCl 50 MG oral Tablet 01-10 00:00: 00 Yes [id number] 50mg Take 1 tablet (50 mg total) by mouth daily Rosie mock Rosuvastati n Calcium 10 MG oral Tablet 01-10 00:00: 00 Yes [id number] 10mg Take 1 tablet (10 mg total) by mouth daily Rosie mock Irbesartan 150 MG oral Tablet 01-10 00:00: 00 Yes [id number] 150mg Take 1 tablet (150 mg total) by mouth nightly Rosie mock Sertraline HCl 50 MG oral Tablet 1 00:00: 00 01-10 00:00 :00 No 50mg Take 50 mg by mouth daily Rosie mock busPIRone HCl 5 MG oral Tablet 1 00:00: 00 01-10 00:00 :00 No TAKE 1 TO 2 TABLETS BY MOUTH TWICE DAILY NEEDED FOR ANXIETY Rosie mock NaCl 0.9% (NS) bolus infusion 1,000 mL 02-22 06:30: 00 02-22 06:33 :00 No 1000mL at 999 mL/hr, 1,000 mL, IV Infusion, ONCE, 1 dose, On Jazmin 02/22/22 at 0130, STAT [facility] acute hospital amoxicillin 500 mg capsule 02-22 00:00: 00 Yes [id number] 500mg Take 1 capsule by mouth 3 (three) times daily. [facility] acute hospital ibuprofen 600 mg tablet 02-22 00:00: 00 Yes [id number] 600mg Take 1 tablet by mouth every 8 (eight) hours as needed for Pain (scale 4-6). General acute hospital ketorolac (TORADOL) injection 30 mg 2020-10 23:30: 00 08-21 22:39 :00 No 30mg 30 mg, Slow IV Push, ONCE, 1 dose, On Sat08/21/21 at 1730, VIKKI
Fa culty member approving Restricted medication : KRISTINA REID General acute hospital NaCl 0.9% (NS) bolus infusion 1,000 mL 2020-10 23:30: 00 08-21 23:38 :00 No 1000mL at 999 mL/hr, 1,000 mL, IV Infusion, ONCE, 1 dose, On Sat08/21/21 at 1730, VIKKI General acute hospital No known medications 2020-10 15:59: 17 No [facility] acute hospital Irbesartan 150 MG oral Tablet 01-25 00:00: 00 01-09 00:00 :00 No 150mg Take 1 tablet (150 mg total) by mouth daily Rosie mock Rosuvastati n Calcium 10 MG oral Tablet 01-25 00:00: 00 01-09 00:00 :00 No 10mg Take 1 tablet (10 mg total) by mouth daily Rosie mock Vital Signs Vital Name Observation Time Observation Value Comments Eri painting Systolic blood pressure 2024-05-13 08:30:00 139 mm[Hg] [facility] Diastolic blood pressure 2024-05-13 08:30:00 91 mm[Hg] [facility] Heart rate 2024-05-13 08:30:00 74 /[facility] 2024-05-13 08:30:00 36.39 Tenisha [facility] Respiratory rate 2024-05-13 08:30:00 16 /min [facility] Oxygen saturation in Arterial blood by Pulse oximetry 2024-05-13 08:30:00 97 /min [facility] Body height 2024-05-13 06:12:00 175.3 cm [facility] Body weight 2024-05-13 06:12:00 99.791 kg [facility] BMI 2024-05-13 06:12:00 32.49 kg/m2 [facility] Systolic blood pressure 2023-09-03 14:00:00 118 mm[Hg] Rosie Seybo ld - External Diastolic blood pressure 2023-09-03 14:00:00 64 mm[Hg] Rosie Seybo ld - External Heart rate 2023-09-03 14:00:00 78 /min Kelse y Seybold - External Body temperature 2023-09-03 14:00:00 36.94 Tenisha Rosie Seybold - External Respiratory rate 2023-09-03 14:00:00 18 /min Rosie Seybold - External Body height 2023-09-03 14:00:00 175.3 cm Vidya ey Seybold - External Body weight 2023-09-03 14:00:00 103.023 kg Vidya ey Seybold - External BMI 2023-09-03 14:00:00 33.54 kg/m2 Vidya ey Seybold - External Oxygen saturation in Arterial blood by Pulse oximetry 2023-09-03 14:00:00 98 /min Rosie Stevensybo ld - External Body height 2023-06-09 03:17:00 175.3 cm [facility] Body weight 2023-06-09 03:17:00 99.791 kg [facility] BMI 2023-06-09 03:17:00 32.49 kg/m2 [facility] Oxygen saturation in Arterial blood by Pulse oximetry 2023-06-09 03:17:00 100 /min [facility] Systolic blood pressure 2023-06-09 03:17:00 138 mm[Hg] [facility] Diastolic blood pressure 2023-06-09 03:17:00 91 mm[Hg] [facility] Heart rate 2023-06-09 03:17:00 90 /min [facility] Body temperature 2023-06-09 03:17:00 36.39 Tenisha [facility] Respiratory rate 2023-06-09 03:17:00 16 /min [facility] Respiratory rate 2023-03-27 13:23:00 15 /min Rosie Seybold - External Body height 2023-03-27 13:23:00 175.3 cm Vidya ey Seybold - External Body weight 2023-03-27 13:23:00 104.327 kg Vidya ey Seybold - External BMI 2023-03-27 13:23:00 33.97 kg/m2 Vidya ey Seybold - External Oxygen saturation in Arterial blood by Pulse oximetry 2023-03-27 13:23:00 98 /min Rosie Seybo ld - External Systolic blood pressure 2023-03-27 13:23:00 120 mm[Hg] Rosie Seybo ld - External Diastolic blood pressure 2023-03-27 13:23:00 86 mm[Hg] Rosie Seybo ld - External Heart rate 2023-03-27 13:23:00 85 /min Kelse y Seybold - External Body temperature 2023-03-27 13:23:00 36.5 Tenisha Rosie Seybold - External Heart rate 2023-02-12 13:10:00 113 /min Kelse y Seybold - External Body temperature 2023-02-12 13:10:00 36.11 Tenisha Rosie Seybold - External Respiratory rate 2023-02-12 13:10:00 14 /min Rosie Seybold - External Body height 2023-02-12 13:10:00 175.3 cm Vidya ey Seybold - External Body weight 2023-02-12 13:10:00 107.956 kg Vidya ey Seybold - External BMI 2023-02-12 13:10:00 35.15 kg/m2 Vidya ey Seybold - External Oxygen saturation in Arterial blood by Pulse oximetry 2023-02-12 13:10:00 99 /min Rosie Yipo ld - External Systolic blood pressure 2023-02-12 13:10:00 129 mm[Hg] Rosie Yipo ld - External Diastolic blood pressure 2023-02-12 13:10:00 76 mm[Hg] Rosie Stevensybo ld - External Systolic blood pressure 2023-01-10 20:01:00 155 mm[Hg] Rosie Stevensybo ld - External Diastolic blood pressure 2023-01-10 20:01:00 92 mm[Hg] Rosie Yipo ld - External Heart rate 2023-01-10 20:01:00 89 /min Charlotte meneses Seybold - External Body temperature 2023-01-10 20:01:00 37.06 Tenisha Rosie Stevensybold - External Respiratory rate 2023-01-10 20:01:00 14 /min Rosie Stevensybold - External Body height 2023-01-10 20:01:00 175.3 cm Vidya ey Seybold - External Body weight 2023-01-10 20:01:00 107.956 kg Vidya ey Seybold - External BMI 2023-01-10 20:01:00 35.15 kg/m2 Vidya ey Seybold - External Oxygen saturation in Arterial blood by Pulse oximetry 2023-01-10 20:01:00 97 /min Rosie Yipo ld - External Systolic blood pressure 2022-02-22 06:00:00 139 mm[Hg] [facility] Diastolic blood pressure 2022-02-22 06:00:00 91 mm[Hg] [facility] Heart rate 2022-02-22 06:00:00 73 /min [facility] Respiratory rate 2022-02-22 06:00:00 21 /min [facility] Oxygen saturation in Arterial blood by Pulse oximetry 2022-02-22 06:00:00 98 /min [facility] Body temperature 2022-02-22 04:13:00 36.44 Tenisha [facility] Body height 2022-02-22 04:13:00 175.3 cm [facility] Body weight 2022-02-22 04:13:00 92.987 kg [facility] BMI 2022-02-22 04:13:00 30.27 kg/m2 [facility] Systolic blood pressure 2021-08-21 23:36:00 131 mm[Hg] [facility] Diastolic blood pressure 2021-08-21 23:36:00 92 mm[Hg] [facility] Heart rate 2021-08-21 23:36:00 72 /min [facility] Respiratory rate 2021-08-21 23:36:00 11 /min [facility] Oxygen saturation in Arterial blood by Pulse oximetry 2021-08-21 23:36:00 100 /min [facility] Body temperature 2021-08-21 21:24:00 36.33 Tenisha [facility] Body height 2021-08-21 21:24:00 175.3 cm [facility] Body weight 2021-08-21 21:24:00 95.255 kg [facility] BMI 2021-08-21 21:24:00 31.01 kg/m2 [facility] Procedures Procedure Date / Time Performed Performing Clinician Source LIPASE 2024-05-13 06:33:00 Bienvenido Fabian [facility] TROPONIN I 2024-05-13 06:33:00 Bienvenido Fabian [facility] COMP. METABOLIC PANEL ([id number]) 2024-05-13 06:33:00 Bienvenido Fabian [facility] CBC WITH DIFF 2024-05-13 06:33:00 [facility]ienvenido Fabian [facility] 2024-05-13 06:33:00 Bienvenido Fabian [facility] NOTICE OF PRIVACY PRACTICES 2023-06-09 03:13:31 Doctor Unassigned, [place] [facility] CONSENT/REFUSAL FOR DIAGNOSIS AND TREATMENT 2023-06-09 03:13:07 Doctor Unassigned, [place] [facility] FREE T4 2022-02-22 05:09:00 Cira Tapia Unive [facility] THYROID STIMULATING HORMONE 2022-02-22 05:09:00 Cira Tapia [facility] COMP. METABOLIC PANEL ([id number]) 2022-02-22 05:09:00 Cira Tapia [facility] CBC WITH DIFF 2022-02-22 05:09:00 Cira Tapia [facility] URINALYSIS 2022-02-22 05:09:00 Cira Tapia [facility] RAPID INFLUENZA A/B 2022-02-22 05:09:00 Mitch Tapia [facility] COVID-19 (ID NOW RAPID TESTING) 2022-02-22 05:09:00 Cira Tapia [facility] URINE DRUG (IMMUNOASSAY) - COMPREHENSIVE DRUG SCREEN W/O REFLEX 2022-02-22 05:09:00 Cira Tapia [facility] CONSENT/REFUSAL FOR DIAGNOSIS AND TREATMENT 2022-02-22 04:09:03 Doctor Unassigned, [place] [facility] XR CHEST 1 VW 2021-08-21 22:06:33 Kristina Reid [facility] LIPASE 2021-08-21 21:59:00 [facility] 2021-08-21 21:59:00 Kristina Reid Un [facility] COMP. METABOLIC PANEL ([id number]) 2021-08-21 21:59:00 Kristina Reid [facility] CBC WITH DIFF 2021-08-21 21:59:00 Kristina Reid [facility] PROTHROMBIN TIME / INR 2021-08-21 21:59:00 Eri Reid [facility] ACTIVATED PARTIAL THRMPLAS MARIALUISA 2021-08-21 21:59:00 Kristina Reid [facility] COVID-19 (ID NOW RAPID TESTING) 2021-08-21 21:59:00 Kristina Reid [facility] CONSENT/REFUSAL FOR DIAGNOSIS AND TREATMENT 2021-08-21 21:13:11 Doctor Unassigned, [place] [facility] Encounters Start Date/Time End Date/Time Encounter Type Admission Type Attending [facility] Care Facility Care Department Encounter ID Source 2024-05-21 00:00:00 2024-05-21 00:00:00 Outpatient RAMONLYDIARUBI Hwang ROSIE NYE [id number] [facility] 2024-05-13 01:21:00 2024-05-13 04:16:00 Emergency X BIENVENIDO FABIAN WAKILI [facility] ERT [id number] General acute hospital 2024-05-13 01:21:00 2024-05-13 04:16:00 Emergency Bienvenido Fabian [facility] [id number] General acute hospital 2023-09-17 08:30:00 2023-09-17 08:30:00 Outpatient LUZ NOLAN ROSIE NYE [id number] [facility] 2023-09-03 08:00:00 2023-09-03 08:00:00 Outpatient LUZ NOLAN ROSIE NYE [id number] [facility] 2023-07-25 00:00:00 2023-07-25 00:00:00 Outpatient RAMONLYDIARUBI Hwang ROSIE NYE [id number] [facility] 2023-06-27 08:30:00 2023-06-27 08:30:00 Outpatient ELIASRUBI Hwang ROSIE NYE [id number] [facility] 2023-06-08 22:20:00 2023-06-08 23:56:00 Emergency X LUIS A ERICKSON BRENT [facility] ERT [id number] General acute hospital 2023-06-08 22:20:00 2023-06-08 23:56:00 Emergency Luis A Erickson [facility] ..840.114 [id number] General acute hospital 2023-04-02 00:00:00 2023-04-02 00:00:00 Outpatient BRANNON RUBI [facility]E [id number] [facility] 2023-03-27 08:00:00 2023-03-27 08:00:00 Outpatient PREZARUBI Hwang [facility]IE [id number] [facility] 2023-02-22 00:00:00 2023-02-22 00:00:00 Outpatient PREZAS, RUBI NYE ROSIE [id number] [facility] 2023-02-15 00:00:00 2023-02-15 00:00:00 Outpatient PREZARUBI Hwang [facility]IE [id number] [facility] 2023-02-12 12:10:00 2023-02-12 12:10:00 Outpatient ROSIE ROSIE [id number] Rosie Stevensbilly 2023-02-12 12:05:00 2023-02-12 12:05:00 Outpatient ROSIE [facility] [id number] [facility] 2023-02-12 12:00:00 2023-02-12 12:00:00 Outpatient ROSIE ROSIE [id number] [facility] 2023-02-12 11:55:00 2023-02-12 11:55:00 Outpatient ROSIE ROSIE [id number] [facility] 2023-02-12 08:15:00 2023-02-12 08:15:00 Outpatient PREZAEri, RUBI NYE ROSIE [id number] [facility] 2023-02-08 00:00:00 2023-02-08 00:00:00 Outpatient PREZASRUBI ROSIE [id number] [facility] 2023-01-21 00:00:00 2023-01-21 00:00:00 Outpatient PREZASRUBI ROSIE NYE [id number] [facility] 2023-01-21 00:00:00 2023-01-21 00:00:00 Outpatient PREZAS, RUBI ROSIE ROSIE [id number] [facility] 2023-01-18 00:00:00 2023-01-18 00:00:00 Outpatient VENESSA [facility]VALO [id number] [facility] 2023-01-11 00:00:00 2023-01-11 00:00:00 Outpatient FE NARAYANAN [id number] Rosie Llamas 2023-01-10 15:00:00 2023-01-10 15:00:00 Outpatient RUBI SOUTH [id number] Rosie Llamas 2022-02-21 23:32:00 2022-02-22 01:44:00 Emergency X CIRA TAPIA [facility] ERT [id number] General acute hospital 2022-02-21 23:32:00 2022-02-22 01:44:00 Emergency Cira Tapia [facility] [id number] [id number] General acute hospital 2021-08-21 15:27:00 2021-08-21 17:48:00 Emergency X FRANKLIN KRISTINA [facility] ERT [id number] General acute hospital 2021-08-21 15:27:00 2021-08-21 17:48:00 Emergency FranklinMindyra [place] [facility] [id number] General acute hospital Results Test Description Test Time Test Comments Results Result Co mments Source [facility] [id number] 07:28:40* Test Item Value Reference Range Interpretation Comme nts TROPONIN I (test code = 2125910439) <=0.034 GRYASON (test code = GRAYSON) Reference (Normal) Range [...] to patient's use of biotin. Lab Interpretation (test code = 24085-7) Normal [facility] with [id number] 07:19:01* Test Item Value Reference Range Interpretation Comme nts WBC (test code = 6690-2) 9.56 4.20-10.70 RBC (test code = 789-8) 4.77 4.26-5.52 HGB (test code = 718-7) 14.5 g/dL 12.2-16.4 HCT (test code = 4544-3) 41.8 % 38.4-49.3 MCV (test code = 787-2) 87.6 fL 81.7-95.6 MCH (test code = 785-6) 30.4 pg 26.1-32.7 MCHC (test code = 786-4) 34.7 g/dL 31.2-35.0 RDW-SD (test code = 36676-3) 38.5 fL 38.5-51.6 RDW-CV (test code = 788-0) 11.9 % 12.1-15.4 L PLT (test code = 777-3) 165 150-328 MPV (test code = 90126-6) 12.9 fL 9.8-13.0 IPF % (test code = 4757389236) 14.2 % 1.2-10.7 H Platelet count measured by fluorescence method. NRBC/100 WBC (test code = 9323504262) 0.0 0.0-10.0 NRBC x10^3 (test code = 8700483520) See_Comment [Automated Futurederma ge] The system which generated this result transmitted reference range: 10*3/?L. The reference range was not used to interpret this result as normal/abnormal. GRAN MAT (NEUT) % (test code = 770-8) 54.6 % IMM GRAN % (test code = 7104275285) 0.30 % LYMPH % (test code = 736-9) 38.0 % MONO % (test code = 5905-5) 5.2 % EOS % (test code = 713-8) 1.4 % BASO % (test code = 706-2) 0.5 % GRAN MAT x10^3(ANC) (test code = 4100918421) 5.22 10*3/uL 1.99-6.95 IMM GRAN x10^3 (test code = 3876532596) 0.03 10*3/uL 0.00-0.06 LYMPH x10^3 (test code = 731-0) 3.63 10*3/uL 1.09-3.23 H MONO x10^3 (test code = 742-7) 0.50 10*3/uL 0.36-1.02 EOS x10^3 (test code = 711-2) 0.13 10*3/uL 0.06-0.53 BASO x10^3 (test code = 704-7) 0.05 10*3/uL 0.01-0.09 Lab Interpretation (test code = 44754-8) Abnormal [facility] ([id number])2024-05-13 07:16:59* Test Item Value Reference Range Interpretation Comme nts NA (test code = 5274573379) 140 mmol/L 135-145 K (test code = 6613622437) 3.7 mmol/L 3.5-5.0 CL (test code = 0275760962) 105 mmol/L 98-108 CO2 TOTAL (test code = 2441968811) 25 mmol/L 23-31 AGAP (test code = 9502962714) 10 2-16 BUN (test code = 3296214905) 16 mg/dL 7-23 GLUCOSE (test code = 7891216628) 117 mg/dL 70-110 H CREATININE (test code = 2160-0) 0.90 mg/dL 0.60-1.25 TOTAL BILI (test code = 4152803435) 0.8 mg/dL 0.1-1.1 CALCIUM (test code = 9662404704) 8.9 mg/dL 8.6-10.6 T PROTEIN (test code = 6805179105) 7.9 g/dL 6.3-8.2 ALBUMIN (test code = 4270929480) 4.7 g/dL 3.5-5.0 ALK PHOS (test code = 1281639391) 86 U/L 34-122 ALTv (test code = 1742-6) 69 U/L 5-50 H AST(SGOT) (test code = 8547563906) 35 U/L 13-40 eGFR (test code = 97485-2) 116.4 mL/min/1.73m2 CKD-EPI eGFR (2020). Assuming creatinine has been stable day-to-day for at least three months, the eGFR indicates Category G1 (>= 90 mL/min/1.73 m2) Lab Interpretation (test code = 05958-1) Abnormal [facility] 07:16:59* Test Item Value Reference Range Interpretation Comme nts LIPASE (test code = 0908859518) 124 U/L 0-220 Lab Interpretation (test cod e = 12004-6) Normal [facility] [id number] 06:11:49 * Test Item Value Reference Range Interpretation Comme nts TSH (test code = 1481429880) See_Comment [Automated Futurederma ge] The system which generated this result transmitted reference range: 0.45 - 4.70 mIU/L. The reference range was not used to interpret this result as normal/abnormal. Lab Interpretation (test code = 38020-8) [id number] 05:58:06* Test Item Value Reference Range Interpretation Comme nts FREE T4 (test code = 7869644741) See_Comment [Automated [employer]] The system which generated this result transmitted reference range: 0.78 - 2.20 ng/dL:. The reference range was not used to interpret this result as normal/abnormal. Lab Interpretation (test code = 83841-1) [facility] METABOLIC PANEL ([id number])2022-02-22 05:36:03* Test Item Value Reference Range Interpretation Comme nts NA (test code = 8292084996) 140 mmol/L 135-145 K (test code = 4706097360) 3.9 mmol/L 3.5-5.0 CL (test code = 9335990619) 104 mmol/L 98-108 CO2 TOTAL (test code = 6185657016) 25 mmol/L 23-31 AGAP (test code = 2503477942) 2-16 BUN (test code = 2920988903) 20 mg/dL 7-23 GLUCOSE (test code = 0899380153) 115 mg/dL 70-110 H CREATININE (test code = 6507872748) 0.81 mg/dL 0.60-1.25 TOTAL BILI (test code = 9112371102) 1.1 mg/dL 0.1-1.1 CALCIUM (test code = 0175364402) 9.5 mg/dL 8.6-10.6 T PROTEIN (test code = 9927740715) 8.3 g/dL 6.3-8.2 H ALBUMIN (test code = 7710701622) 5.2 g/dL 3.5-5.0 H ALK PHOS (test code = 2198096370) 89 U/L 34-122 ALTv (test code = 1742-6) 38 U/L 5-50 AST(SGOT) (test code = 9187504515) 28 U/L 13-40 eGFR (test code = 1494526229) mL/min/1.73m2 GRAYSON (test code = GRAYSON) Association of [...] or abnormalities in imaging tests). Lab Interpretation (test code = 64595-5) Abnormal [facility] WITH [id number] 05:23:18* Test Item Value Reference Range Interpretation Comme nts WBC (test code = 6690-2) See_Comment H [Automated messa ge] The system which generated this result transmitted reference range: 4.20 - 10.70 10*3/?L. The reference range was not used to interpret this result as normal/abnormal. RBC (test code = 789-8) See_Comment H [Automated messa ge] The system which generated this result transmitted reference range: 4.26 - 5.52 10*6/?L. The reference range was not used to interpret this result as normal/abnormal. HGB (test code = 718-7) 17.0 g/dL 12.2-16.4 H HCT (test code = 4544-3) 49.3 % 38.4-49.3 MCV (test code = 787-2) 83.3 fL 81.7-95.6 MCH (test code = 785-6) 28.7 pg 26.1-32.7 MCHC (test code = 786-4) 34.5 g/dL 31.2-35.0 RDW-SD (test code = 92776-1) 36.7 fL 38.5-51.6 L RDW-CV (test code = 788-0) 12.0 % 12.1-15.4 L PLT (test code = 777-3) See_Comment [Automated [employer] ge] The system which generated this result transmitted reference range: 150 - 328 10*3/?L. The reference range was not used to interpret this result as normal/abnormal. MPV (test code = 68826-1) 13.0 fL 9.8-13.0 NRBC/100 WBC (test code = 6966143250) See_Comment [Automated [employer] ssage] The system which generated this result transmitted reference range: 0.0 - 10.0 /100 WBCs. The reference range was not used to interpret this result as normal/abnormal. NRBC x10^3 (test code = 1905961792) <0.01 See_Comment [Automated messa ge] The system which generated this result transmitted reference range: 10*3/?L. The reference range was not used to interpret this result as normal/abnormal. GRAN MAT (NEUT) % (test code = 770-8) 65.0 % IMM GRAN % (test code = 2927953324) 0.20 % LYMPH % (test code = 736-9) 28.7 % MONO % (test code = 5905-5) 4.8 % EOS % (test code = 713-8) 0.9 % BASO % (test code = 706-2) 0.4 % GRAN MAT x10^3(ANC) (test code = 5429578654) 8.21 10*3/uL 1.99-6.95 H IMM GRAN x10^3 (test code = 9759497592) 0.03 10*3/uL 0.00-0.06 LYMPH x10^3 (test code = 731-0) 3.62 10*3/uL 1.09-3.23 H MONO x10^3 (test code = 742-7) 0.60 10*3/uL 0.36-1.02 EOS x10^3 (test code = 711-2) 0.11 10*3/uL 0.06-0.53 BASO x10^3 (test code = 704-7) 0.05 10*3/uL 0.01-0.09 Lab Interpretation (test code = 17896-7) [id number] 22:36:33* Test Item Value Reference Range Interpretation Comments TROPONIN I (test code = 8033916173) <0.012 See_Comment [Automated message] The system which generated this result transmitted reference range: <=0.034 ng/mL. The reference range was not used to interpret this result as normal/abnormal. GRAYSON (test code = GRAYSON) Reference (Normal) [...] to patient's use of biotin. Lab Interpretation (test code = 01041-7) Normal [facility]. METABOLIC PANEL ([id number])2021-08-21 22:24:50* Test Item Value Reference Range Interpretation Comme nts NA (test code = 7598525183) 137 mmol/L 135-145 K (test code = 1865456819) 3.8 mmol/L 3.5-5.0 CL (test code = 6539691540) 102 mmol/L 98-108 CO2 TOTAL (test code = 1678860176) 24 mmol/L 23-31 AGAP (test code = 4539202191) 2-16 BUN (test code = 7686411625) 16 mg/dL 7-23 GLUCOSE (test code = 7592933247) 177 mg/dL 70-110 H CREATININE (test code = 8237328083) 0.81 mg/dL 0.60-1.25 TOTAL BILI (test code = 1971742802) 1.1 mg/dL 0.1-1.1 CALCIUM (test code = 5218455448) 10.1 mg/dL 8.6-10.6 T PROTEIN (test code = 2699542697) 8.0 g/dL 6.3-8.2 ALBUMIN (test code = 9133435806) 4.8 g/dL 3.5-5.0 ALK PHOS (test code = 0572688677) 100 U/L 34-122 ALTv (test code = 1742-6) 38 U/L 5-50 AST(SGOT) (test code = 1955164996) 28 U/L 13-40 eGFR (test code = 2236330168) mL/min/1.73m2 GRAYSON (test code = GRAYSON) Association of [...] or abnormalities in imaging tests). Lab Interpretation (test code = 85167-0) [facility], [id number] 22:24:30* Test Item Value Reference Range Interpretation [facility] (test code = 6373049284) 87 U/L 0-220 Lab Interpretation (test cod e = 63976-6) Normal [facility]21-[facility]-08 22:17:09* Test Item Value Reference Range Interpretation Comme [facility] APTT Patient (test code = 3173-2) See_Comment [Automated message] The system which generated this result transmitted reference range: 23 - 38 Seconds. The reference range was not used to interpret this result as normal/abnormal. GRAYSON (test code = GRAYSON) The [facility] patient population mean normal value for aPTT is 30 seconds. Lab Interpretation (test code = 33687-1) Normal [facility] / [id number] 22:15:14* Test Item Value Reference Range Interpretation Comme [facility] PROTIME PATIENT (test code = 5964-2) See_Comment [Automated [employer] ge] The system which generated this result transmitted reference range: 12.0 - 14.7 Seconds. The reference range was not used to interpret this result as normal/abnormal. INR (test code = 6301-6) Normal INR <1.1; Warfarin Therapeutic range 2.0 to 3.0 or 2.5 to 3.5, depending upon the indications. Lab Interpretation (test code = 24520-7) Normal [facility] WITH [id number] 22:07:28* Test Item Value Reference Range Interpretation Comme nts WBC (test code = 6690-2) See_Comment [Automated messa ge] The system which generated this result transmitted reference range: 4.20 - 10.70 10*3/?L. The reference range was not used to interpret this result as normal/abnormal. RBC (test code = 789-8) See_Comment [Automated messa ge] The system which generated this result transmitted reference range: 4.26 - 5.52 10*6/?L. The reference range was not used to interpret this result as normal/abnormal. HGB (test code = 718-7) 15.1 g/dL 12.2-16.4 HCT (test code = 4544-3) 42.9 % 38.4-49.3 MCV (test code = 787-2) 83.5 fL 81.7-95.6 MCH (test code = 785-6) 29.4 pg 26.1-32.7 MCHC (test code = 786-4) 35.2 g/dL 31.2-35.0 H RDW-SD (test code = 66400-0) 35.3 fL 38.5-51.6 L RDW-CV (test code = 788-0) 11.7 % 12.1-15.4 L PLT (test code = 777-3) See_Comment [Automated messa ge] The system which generated this result transmitted reference range: 150 - 328 10*3/?L. The reference range was not used to interpret this result as normal/abnormal. MPV (test code = 20755-2) 12.4 fL 9.8-13.0 NRBC/100 WBC (test code = 5792755622) See_Comment [Automated [employer] ssage] The system which generated this result transmitted reference range: 0.0 - 10.0 /100 WBCs. The reference range was not used to interpret this result as normal/abnormal. NRBC x10^3 (test code = 3131052568) <0.01 See_Comment [Automated messa ge] The system which generated this result transmitted reference range: 10*3/?L. The reference range was not used to interpret this result as normal/abnormal. GRAN MAT (NEUT) % (test code = 770-8) 69.4 % IMM GRAN % (test code = 1262726580) 0.20 % LYMPH % (test code = 736-9) 25.5 % MONO % (test code = 5905-5) 3.5 % EOS % (test code = 713-8) 1.1 % BASO % (test code = 706-2) 0.3 % GRAN MAT x10^3(ANC) (test code = 4330268300) 6.12 10*3/uL 1.99-6.95 IMM GRAN x10^3 (test code = 6966838997) <0.03 0.00-0.06 LYMPH x10^3 (test code = 731-0) 2.25 10*3/uL 1.09-3.23 MONO x10^3 (test code = 742-7) 0.31 10*3/uL 0.36-1.02 L EOS x10^3 (test code = 711-2) 0.10 10*3/uL 0.06-0.53 BASO x10^3 (test code = 704-7) 0.03 10*3/uL 0.01-0.09 Lab Interpretation (test code = 36853-3) Abnormal [facility] Notes Date/Time Note Provider Source 2024-05-13 04:10:56 Pt given printed and verbal discharge instructions regarding chest pain, epigastric pain Prescriptions provided: -ondansetron 4 mg tablet -pantoprazole 40 mg EC tablet Pt verbalized understanding of instructions, pt awake alert oriented, resp reg unlabored, skin w/d, color appropriate for race, moves all ext well,pt encouraged to follow up with pcp Advised to seek medical attention for new/prolonged/worsening of symptoms No adverse reaction to meds given in ER noted upon discharge PIV d'cd, dressing to site, catheter in tact. Awake, alert oriented, resp reg unlabored, skin w/d, pt leaving amb with steady gait, in no apparent distress Silke Mcgowan RN [facility] 2024-05-13 01:07:14 Pt arrives ambulatory to ED reporting that he has felt fatigued all day and "not right." He says that aprox 15 min [employer] he was laying in bed and suddenly got a sharp, pressure pain in the center of his chest, he's feeling lightheaded, dizzy & SOB. Rita Reid RN [facility] 2023-06-08 23:32:46 Formatting of this n ote might be different from the original. Pt given printed and verbal discharge instructions regarding cellulitis, encouraged hydration, Prescriptions provided Discussed ibuprofen and to take with food to avoid GI distress, alternate with Tylenol to help with pain and/or fever Discussed antibiotic/steroid therapy and to take until all completed unless adverse reaction occurs - if occurs, discontinue medication and follow up with pcp/seek medical attention Pt verbalized understanding of instructions,pt encouraged to follow up with pcp Advised to seek medical attention for new/prolonged/worsening of symptoms, No adverse reaction to meds given in ER noted upon discharge Awake, alert oriented, resp reg unlabored, skin w/d, pt leaving in no apparent distress, Rita Powell RN [facility] 2023-06-08 22:15:38 Formatting of this n ote might be different from the original. CC: significant other was looking at back and notficed an area on left shoulder blade that is swollen and red. Denies injury for being bit by an insect. Awake, alert, oriented, resp reg unlabored, skin warm and dry, color appropriate for race, moves all ext without difficulty, amb with no assist Appears in no distress Julianne Sosa RN [facility] 2023-06-08 22:12:00 Formatting of this n ote is different from the original. [facility] Emergency Department Note Patient Name: Kana Rinku Arroyo Date of : 1990 33 year old male Treatment Room: [place] [address] [address] Primary Care Physician: Manav Roberts Patient Escorted by: Family [5] Mode of Arrival: Personal means [1] EMS Treatment Prior to ED Arrival: [employer] treatment: None Travel and Exposure Screening: Symptoms Does patient have any of these symptoms?: (not recorded) Exposure Screening Has patient had contact with someone with a communicable disease in the last month?: (not recorded) Diseases exposed to:: (not recorded) Is Patient ?: (not recorded) Exposure Date: (not recorded) Chief Complaint: Chief Complaint Patient presents with Skin Problem History of Present Illness: 33 y.o. male with left upper back focal area of swelling and redness, noted by sig. Other. Patient denies symptoms until today. Denies fever/chills, no known injury or bites. Past Medical History/Immunizations: No past medical history on file. Tetanus received in last 5 years: Yes Childhood immunizations: Up-to-date Allergies: No Known Allergies Past Social History: Substance & Sexual Activity No substance use or sexual activity history on file. Past Surgical History: No past surgical history on file. Review of Systems: Review of Systems Constitutional: Negative for chills and fever. HENT: Negative. Eyes: Negative. Respiratory: Negative. Breasts: Negative. Cardiovascular: Negative. Gastrointestinal: Negative. Genitourinary: Negative. Musculoskeletal: Negative. Skin: Positive for color change and rash. Neurological: Negative. Psychiatric/Behavioral: Negative. Endocrine: Endocrine negative Physical Exam: ED Triage Vitals [06/08/23 2217] Weight 99.8 kg (220 lb) Actual or estimated Estimated by patient/family report Height 1.753 m (5' 9") BP (!) 138/91 Pulse 90 Resp 16 Temp 36.4 ?C (97.5 ?F) Temp source Oral SpO2 100 % Measured on Room air Physical Exam Vitals and nursing note reviewed. Constitutional: General: He is not in acute distress. Appearance: Normal appearance. He is not ill-appearing, toxic-appearing or diaphoretic. HENT: Head: Normocephalic and atraumatic. Nose: Nose normal. Mouth/Throat: Mouth: Mucous membranes are moist. Eyes: Pupils: Pupils are equal, round, and reactive to light. Cardiovascular: Rate and Rhythm: Normal rate. Pulses: Normal pulses. Pulmonary: Effort: Pulmonary effort is normal. Abdominal: Palpations: Abdomen is soft. Musculoskeletal: General: Swelling and tenderness present. Normal range of motion. Skin: Comments: Left upper back--focal area of erythema and swelling, NO fluctuance noted on my exam. No open wound or obvious focus of infection. Neurological: General: No focal deficit present. Mental Status: He is alert and oriented to person, place, and time. Psychiatric: Mood and Affect: Mood normal. Behavior: Behavior normal. Radiology: No orders to display Lab Results: Lab Results - No data to display EKG: If EKG completed, see Procedure Note. Orders and Treatments: No orders of the defined types were placed in this encounter. Orders Placed This Encounter Medications cefTRIAXone (ROCEPHIN) injection 1,000 mg dexamethasone sod phos PF injection 6 mg First Provider Eval: ED Events None No notes of Admission Criteria type on file. ED COURSE Diagnosis/Impression as of 06/08/23 2305 Cellulitis of back except buttock Procedures: Procedures MDM: Medical Decision Making Risk Prescription drug management. Flowsheet Documentation: Scoring Tools: No data recorded A) Focal area of Cellulitis vs. Local Allergic Reaction Disposition/Condition: Home, Augmentin x 10 days. Ibuprofen as needed for pain/inflammation, strict ER warnings for worsening symptoms/infection. ED Disposition None Discharge Medications: Patient's Medications START taking these medications No medications on file CONTINUE taking these medications which have NOT CHANGED AMOXICILLIN 500 MG CAPSULE Take 1 capsule by mouth 3 (three) times daily. IBUPROFEN 600 MG TABLET Take 1 tablet by mouth every 8 (eight) hours as needed for Pain (scale 4-6). START taking Modified Medications as Prescribed No medications on file STOP taking these medications No medications on file Follow-up: PCP in 2 days for re-evaluation. Electronically signed by: Luis A Erickson MD 06/08/23 5305 T [facility]
--- NOTE | 2024-09-11 09:08 | EDPHYS ---
Physician Documentation [facility] Name: Kana Arroyo Age: 34 yrs Sex: Male : 1990 Arrival Date: 09/11/2024 Time: 07:53 Bed 16 Private MD: ED Physician Deacon Enrique HPI: 09/11 08:59 This 34 yrs old Male presents to ER via Ambulatory with complaints of Ear kevin Pain, dental pain. 08:59 The patient presents with pain. The complaints affect the lower left second bicuspid. kevin Onset: The symptoms/episode began/occurred 3 day(s) ago. Modifying factors: The symptoms are alleviated by nothing, the symptoms are aggravated by nothing. Severity of symptoms: At their worst the symptoms were moderate in the emergency department the symptoms are unchanged. Historical: - Allergies: 08:23 No Known Allergies; ha1 - Home Meds: 08:23 None [Active]; ha1 - PMHx: 08:23 Anxiety; Hyperlipidemia; Hypertension; Major Depressive Disorder; Umbilical hernia; ha1 - PSHx: 08:23 rhinoplasty; Tonsillectomy; ha1 - Immunization history:: Adult Immunizations unknown. - Infectious Disease History:: Denies. - Social history:: Smoking status: Patient denies any tobacco usage or history of. ROS: 09:00 Constitutional: Negative for fever, chills, and weight loss, Eyes: Negative for injury, kevin pain, redness, and discharge, Neck: Negative for injury, pain, and swelling, Cardiovascular: Negative for chest pain, palpitations, and edema, Respiratory: Negative for shortness of breath, cough, wheezing, and pleuritic chest pain, Abdomen/GI: Negative for abdominal pain, nausea, vomiting, diarrhea, and constipation, Back: Negative for injury and pain, : Negative for injury, bleeding, discharge, and swelling, MS/Extremity: Negative for injury and deformity, Neuro: Negative for headache, weakness, numbness, tingling, and seizure, Psych: Negative for depression, anxiety, suicide ideation, homicidal ideation, and hallucinations, Allergy/Immunology: Negative for hives, rash, and allergies, Endocrine: Negative for neck swelling, polydipsia, polyuria, polyphagia, and marked weight changes, Hematologic/Lymphatic: Negative for swollen nodes, abnormal bleeding, and unusual bruising, 09:00 ENT: Positive for Teeth pain right lower gingival growth, lesion, 09:00 Skin: Positive for Exam: 09:00 Constitutional: This is a well developed, well nourished patient who is awake, alert, kevin and in no acute distress. Head/Face: Normocephalic, atraumatic. Eyes: Pupils equal round and reactive to light, extra-ocular motions intact. Lids and lashes normal. Conjunctiva and sclera are non-icteric and not injected. Cornea within normal limits. Periorbital areas with no swelling, redness, or edema. Neck: Trachea midline, no thyromegaly or masses palpated, and no cervical lymphadenopathy. Supple, full range of motion without nuchal rigidity, or vertebral point tenderness. No Meningismus. Chest/axilla: Normal chest wall appearance and motion. Nontender with no deformity. No lesions are appreciated. Cardiovascular: Regular rate and rhythm with a normal S1 and S2. No gallops, murmurs, or rubs. Normal PMI, no JVD. No pulse deficits. Respiratory: Lungs have equal breath sounds bilaterally, clear to auscultation and percussion. No rales, rhonchi or wheezes noted. No increased work of breathing, no retractions or nasal flaring. Abdomen/GI: Soft, non-tender, with normal bowel sounds. No distension or tympany. No guarding or rebound. No evidence of tenderness throughout. Back: No spinal tenderness. No costovertebral tenderness. Full range of motion. Male : Normal genitalia with no discharge or lesions. Skin: Warm, dry with normal turgor. Normal color with no rashes, no lesions, and no evidence of cellulitis. MS/ Extremity: Pulses equal, no cyanosis. Neurovascular intact. Full, normal range of motion. Neuro: Awake and alert, GCS 15, oriented to person, place, time, and situation. Cranial nerves II-XII grossly intact. Motor strength 5/5 in all extremities. Sensory grossly intact. Cerebellar exam normal. Normal gait. Psych: Awake, alert, with orientation to person, place and time. Behavior, mood, and affect are within normal limits. 09:00 ENT: Mouth: Oral mucosa: moist, Gums: noted to have cellulitis, right lower gingival lesion, Vital Signs: 08:21 BP 155 / 100; Pulse 69; Resp 16; Temp 98(TE); Pulse Ox 99% on R/A; Weight 99.79 kg; ha1 Height 5 ft. 9 in. ; Pain 4/10; 09:15 BP 148 / 106; Pulse 70; Resp 15; Pulse Ox 99% ; jl7 08:21 Body Mass Index 32.49 (99.79 kg, 175.26 cm) ha1 08:21 Pain Scale: Adult ha1 Jovanny Coma Score: 09:04 Eye Response: spontaneous(4). Motor Response: obeys commands(6). Verbal Response: kevin oriented(5). Total: 15. MDM: 08:04 Medical Screening Exam initiated kevin 08:16 Medical Screening Exam initiated kevin 09:04 Differential diagnosis: otitis media. Data reviewed: vital signs, nurses notes. kevin Consideration of Admission/Observation Escalation of care including admission/observation considered. I considered the following discharge prescriptions or medication management in the emergency department Medications were administered in the Emergency Department. See MAR. Test considered but Not performed: Labs: no cbc , no comp. Care significantly affected by the following chronic conditions: Hypertension, anxiety, depression, hyperlipid, hernia. Administered Medications: :27 Drug: Rocephin (cefTRIAXone) IM 1 grams IM once Route: IM; Site: right ventrogluteal; jl7 09:34 Follow up: Response: No adverse reaction jl7 09:27 Drug: Amoxicillin-Clavulanate PO 875 mg PO once Route: PO; jl7 09:33 Follow up: Response: Medication administered at discharge. jl7 09:27 Drug: Ibuprofen PO 800 mg PO once Route: PO; jl7 09:33 Follow up: Response: No adverse reaction; Medication administered at discharge. jl7 Disposition Summary: 09/11/24 09:08 Discharge Ordered Notes: Location: Home kevin Problem: new kevin Symptoms: have improved kevin Condition: Stable kevin Diagnosis - Dental caries, unspecified - right gingival lesion kevin - Acute serous otitis media, right ear kevin Followup: kevin - With: Private Physician - When: 2 - 3 days - Reason: Recheck today's complaints, Continuance of care, Re-evaluation by your physician Followup: kevin - With: Cameron Gonzalez DDS - When: 2 - 3 days - Reason: Recheck today's complaints, Re-evaluation by your physician Followup: kevin - With: Krista Garcia MD - When: 2 - 3 days - Reason: Recheck today's complaints, Re-evaluation by your physician Discharge Instructions: - Discharge Summary Sheet kevin - Dental Caries, Adult kevin - Dental Pain kevin - Otitis Media, Adult kevin - Otitis Media, Adult, Gvsw-ft-Lldb kevin - Dental Pain, Cszd-kw-Wxrb [facility] - Diet and Dental Disease [facility] Forms: - Medication Reconciliation Form kevin - Antibiotic Education kevin - Prescription Opioid Use kevin - Patient Portal Instructions [facility] - Leadership Thank You Letter [facility] Prescriptions: - Augmentin 875-125 mg Oral Tablet - take 1 tablet ORAL route every 12 hours for 10 days; 20 tablet; Refills: 0, [facility] Product Selection Permitted - Ibuprofen 600 mg Oral Tablet - take 1 tablet ORAL route every 6 hours As needed take with food; 30 tablet; [facility] Refills: 0, Product Selection Permitted Signatures: Dispatcher [employer] EDDeacon Luciano MD MD cha Leal, Jahala, RN RN jl7 Rayna Loomis RN RN ha1 Corrections: (The following items were deleted from the chart) 08:34 08:07 Group A Streptococcus Rapid [id number] ordered. EDMS EDMS
--- NOTE | 2024-09-11 09:08 | ER ---
Nurse's Notes [facility] Name: Kana Arroyo Age: 34 yrs Sex: Male : 1990 Arrival Date: 09/11/2024 Time: 07:53 Bed 16 Private MD: Diagnosis: Dental caries, unspecified-right gingival lesion;Acute serous otitis media, right ear Presentation: 09/11 08:21 Chief complaint: Patient states: swelling to L low jaw after chipping tooth. Also c/o ha1 dental pain on right side that is causing R ear to have pain. Coronavirus screen: Client denies travel out of the [place] in the last 14 days. Ebola Screen: Patient denies exposure to infectious person. Patient denies travel to an Ebola-affected area in the 21 days before illness onset. Initial Sepsis Screen: Does the patient meet any 2 criteria? No. Patient's initial sepsis screen is negative. Does the patient have a suspected source of infection? No. Patient's initial sepsis screen is negative. Risk Assessment: Do you want to hurt yourself or someone else? Patient reports no desire to harm self or others. Onset of symptoms is unknown. 08:21 Method Of Arrival: Ambulatory ha1 08:21 Acuity: AUTUMN 3 ha1 Historical: - Allergies: 08:23 No Known Allergies; ha1 - Home Meds: 08:23 None [Active]; ha1 - PMHx: 08:23 Anxiety; Hyperlipidemia; Hypertension; Major Depressive Disorder; Umbilical hernia; ha1 - PSHx: 08:23 rhinoplasty; Tonsillectomy; ha1 - Immunization history:: Adult Immunizations unknown. - Infectious Disease History:: Denies. - Social history:: Smoking status: Patient denies any tobacco usage or history of. Screenin:45 [facility] ED Fall Risk Assessment (Adult) History of falling in the last 3 months, jl7 including since admission No falls in past 3 months (0 pts) Confusion or Disorientation No (0 pts) Intoxicated or Sedated No (0 pts) Impaired Gait No (0 pts) Mobility Assist Device Used No (0 pt) Altered Elimination No (0 pt) Score/Fall Risk Level 0 - 2 = Low Risk Oriented to surroundings, Maintained a safe environment. 08:45 Abuse screen: Denies threats or abuse. Denies injuries from another. Nutritional jl7 screening: No deficits noted. Tuberculosis screening: No symptoms or risk factors identified. Assessment: 08:30 General: Appears in no apparent distress. uncomfortable, Behavior is calm, cooperative, jl7 appropriate for age. Pain: Complains of pain in right ear and mouth Pain currently is 4 out of 10 on a pain scale. Neuro: No deficits noted. Cardiovascular: Patient's skin is warm and dry. Respiratory: Airway is patent Respiratory effort is even, unlabored, Respiratory pattern is regular, symmetrical. EENT: Ear canal clear on right ear and left ear Dental caries noted in lower left second bicuspid (#20) swelling noted to right lower gum. Vital Signs: 08:21 BP 155 / 100; Pulse 69; Resp 16; Temp 98(TE); Pulse Ox 99% on R/A; Weight 99.79 kg; ha1 Height 5 ft. 9 in. ; Pain 4/10; 09:15 BP 148 / 106; Pulse 70; Resp 15; Pulse Ox 99% ; jl7 08:21 Body Mass Index 32.49 (99.79 kg, 175.26 cm) ha1 08:21 Pain Scale: Adult ha1 Jovanny Coma Score: 09:04 Eye Response: spontaneous(4). Motor Response: obeys commands(6). Verbal Response: kevin oriented(5). Total: 15. ED Course: 08:02 Patient arrived in ED. gm2 08:06 Deacon Enrique MD is Attending Physician. kevin 08:23 Triage completed. ha1 08:23 Arm band placed on right wrist. ha1 08:26 Vesta Alarcon, RN is Primary Nurse. jl7 08:45 Patient has correct armband on for positive identification. Provided Education on: jl7 Risks associated with noncompliant htn and high cholesterol management.. 09:06 Cameron Gonzalez DDS is Referral Physician. kevin 09:06 Krista Garcia MD is Referral Physician. kevin 09:35 No provider procedures requiring assistance completed. Patient did not have IV access jl7 during this emergency room visit. Administered Medications: 09:27 Drug: Rocephin (cefTRIAXone) IM 1 grams IM once Route: IM; Site: right ventrogluteal; jl7 09:34 Follow up: Response: No adverse reaction jl7 09:27 Drug: Amoxicillin-Clavulanate PO 875 mg PO once Route: PO; jl7 09:33 Follow up: Response: Medication administered at discharge. jl7 09:27 Drug: Ibuprofen PO 800 mg PO once Route: PO; 7 09:33 Follow up: Response: No adverse reaction; Medication administered at discharge. jl7 Medication: 09:15 VIS not applicable for this client. jl7 Outcome: :08 Discharge ordered by . kevin 09:35 Discharged to home ambulatory, 09:35 Condition: stable 09:35 Discharge instructions given to patient, Instructed on discharge instructions, follow up and referral plans. Demonstrated understanding of instructions, follow-up care, medications, Prescriptions given X 2, :35 Patient left the ED. 7 Signatures: Deacon Enrique MD MD cha Leal, Jahala, RN RN jl7 Rayna Loomis, VARINDER RN Janine Stewart 2
[2024-09-11] MEDS ORDERED: IBUPROFEN 400 MG TAB ONE (09:16)
[2024-09-11] MEDS ORDERED: CEFTRIAXONE 1000 MG/VIAL ONE (09:16)
[2024-09-11] MEDS ORDERED: AMOX/K CLAV 875 MG TAB ONE (09:16)
[2024-09-11] MEDS ORDERED: LIDOCAINE 1% MPF 2 ML AMPULE ONE (09:17)
[2024-09-11 10:34] VITALS: TEMP 98; O2SAT 99
[2024-09-11 10:36] VITALS: BP 148/106
== END 2024-09-11 09:35 | disposition home or self-care (01) ==
LOC: ER 07:53
DX: K02.9 Dental caries, unspecified (principal); K06.8 Other specified disorders of gingiva and edentulous alveolar ridge; H65.01 Acute serous otitis media, right ear
CPT/HCPCS: 96372; 99284; J0696